=== PATIENT | male | born 1945 | race Caucasian/White ===

== ENCOUNTER 2016-07-28 10:18 | Emergency (ER) | payer SELFPAY ==
[~2016-07-28] VITALS: Ht 182.9 cm; Wt 81.0 kg
[~2016-07-28 10:18] MED LIST: CEPH500C3 PO; CLEO300C2 PO; LORTA5 PO
[2016-07-28 10:41] VITALS: BP 148/86; PULSE 62; RESP 16; TEMP 97.9; O2SAT 99
--- NOTE | 2016-07-28 11:21 | PD ---
HPI . left eye fb x 2 days Chief Complaint: Eye Problems/Injury Time Seen by Provider: 11:21 Travel History International Travel<30 days: No Contact w/Intl Traveler<30days: No Traveled to known affect area: No History of Present Illness HPI 70-year-old male with no significant past medical history here with complaints of left eye foreign body for 2 days. Patient was working on his boat with a external grinder tool and states that he removed his eyeglasses for 1 second and suddenly felt something sharp penetrating his eye. He thoroughly flushed his eye and has been trying to deal with it at home. He is now reporting significant eye pain and purulent drainage from the left eye. He has a difficult time opening his eye and therefore is very difficult to assess his vision in the left eye. He has no complaints of his right eye. He denies any fever or chills. Has no other symptoms. PFSH Past Medical History Diminished Hearing: No Psychiatric: Yes (Schizophrenia) Tetanus Vaccination: < 5 Years Influenza Vaccination: No Past Surgical History Tonsillectomy: Yes Social History Alcohol Use: No Tobacco Use: No Substance Use: No Allergies-Medications (Allergen,Severity, Reaction): Coded Allergies: Thorazine (Verified Allergy, Severe, Confusion, 07/28/16) Reported Meds & Prescriptions Reported Meds & Active Scripts Active No Active Prescriptions or Reported Medications Review of Systems General / Constitutional: No: Fever Eyes: Positive: Pain (left eye pain), No: Visual changes HENT: No: Headaches Cardiovascular: No: Chest Pain or Discomfort Respiratory: No: Shortness of Breath Gastrointestinal: No: Abdominal Pain Genitourinary: No: Dysuria Musculoskeletal: No: Pain Skin: No Rash Neurologic: No: Weakness Psychiatric: No: Depression Endocrine: No: Polydipsia Hematologic/Lymphatic: No: Easy Bruising Physical Exam Narrative GENERAL: AAO x 3, no acute distress, Well-nourished, well-developed patient. SKIN: Warm and dry. No visible rashes or bruising. HEAD: Normocephalic and atraumatic. EYES: No scleral icterus. No injection or drainage. Right eye EOM intact, PERRL , left eye is draining purulent matter, there is a lesion on the cornea, the sclera is inflamed and erythematous ENT: No nasal drainage noted. Mucous membranes pink. Airway patent. NECK: Supple, trachea midline. No JVD. CARDIOVASCULAR: Regular rate and rhythm without murmurs, gallops, or rubs. RESPIRATORY: Breath sounds equal bilaterally. No accessory muscle use. No rhonchi or rales. GASTROINTESTINAL: Abdomen soft, non-tender, nondistended. EXTREMITIES: No cyanosis or edema. BACK: Nontender without obvious deformity. No CVA tenderness. PSYCH: AAO x 3, normal affect. Data Data Last Documented VS Vital Signs Date Time Temp Pulse Resp B/P Pulse Ox O2 Delivery O2 Flow Rate FiO2 07/28/16 10:41 97.9 62 16 148/86 99 Orders Proparacaine 0.5% Opth Soln (Alcaine 0.5 (07/28/16 11:30) Ct Facial Bones W/O Iv Cont (07/28/16 ) MDM Medical Decision Making Medical Screen Exam Complete: Yes Emergency Medical Condition: Yes Medical Record Reviewed: Yes Differential Diagnosis fb in the left eye, corneal abrasion, less likely acute angle glaucoma Narrative Course 70-year-old male with no significant past medical history here with complaints of left eye foreign body for 2 days. Patient was working on his boat with a external grinder tool and states that he removed his eyeglasses for 1 second and suddenly felt something sharp penetrating his eye. He thoroughly flushed his eye and has been trying to deal with it at home. He is now reporting significant eye pain and purulent drainage from the left eye. He has a difficult time opening his eye and therefore is very difficult to assess his vision in the left eye. He has no complaints of his right eye. He denies any fever or chills. Has no other symptoms. Patient seen and examined. Initially I was going to perform staining to look for fb, however, patient's eye is appearing very abnormal. There is a definitive lesion on the cornea and significant amount of purulent matter draining from the eye. The conjunctiva is erythematous and inflamed. There also appears to be some swelling. I decided to contact Dr. Villegas and together we decided to hold on any staining and to check CT for fb and send to ophthalmology. CT scan was negative for any type of foreign body. Call made to Dr. Karimi of ophthalmology. Discussed with Dr. Karimi. She will see him now in her office. Patient given him information and told to go there immediately. Discussed risk of blindness and loss of eye. 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 There was some type of issues with transportation. Patient obviously cannot drive, but his friend Liborio was supposed to pick him up. We were in the process of getting a taxi pass, but then patient's friend Liborio confirmed that he will indeed transport patient to the appointment. 1402: still waiting on Liborio to pick patient up. He is making noises and disrupting other patients. I stressed the importance of f/u and risks of not going such as blindness and loss of his eye. Diagnosis Primary Impression: RETAINED FOREIGN BODY IN LEFT EYE, UNSPECIFIED EYELID Patient Instructions: General Instructions Additional Instructions: Please return to emergency department if your symptoms return or worsen. Follow up with your primary care provider. Please go immediately to the following address to see Dr. Katherine Karimi, senior director of global [employer] [address] [facility] [phone] SHE WILL SEE YOU NOW IN HER OFFICE. Med/Other Pt SpecificInfo: No Change to Meds Scripts No Active Prescriptions or Reported Meds Disposition: 01 DISCHARGE HOME Condition: Stable Emani Denson Jul 28, 2016 11:21
[2016-07-28] MEDS ORDERED: PROPARACAINE HCL 0.5% OPHT SOLN 15 ML BTL EACH EYE ONE (11:30)
--- NOTE | 2016-07-28 11:37 | PD ---
Physical Exam Date Seen by Provider: Jul 28, 2016 Narrative Left eye problem Data Data Last Documented VS Vital Signs Date Time Temp Pulse Resp B/P Pulse Ox O2 Delivery O2 Flow Rate FiO2 07/28/16 10:41 97.9 62 16 148/86 99 Orders Proparacaine 0.5% Opth Soln (Alcaine 0.5 (07/28/16 11:30) Ct Facial Bones W/O Iv Cont (07/28/16 ) MDM Supervised Visit with [facility]: Yes Narrative Course I was asked to see this patient by the nurse practitioner. He was grinding his boat a couple of days ago when he got something into his left eye. I, Dr. Villegas, have reviewed the advance practice practitioner's documentation and am in agreement, met with the patient face to face, made the diagnosis, and the medical decision making was done by me. *My assessment and Findings: His left eye is swollen shut. There is purulent drainage. There is a visible abnormality of the left cornea which appears to be inside of the cornea. That is, it does not appear to be on the surface. It looks like a small accumulation of pus. I have asked the inpatient order a CT to look for and intraorbital foreign body. She was then consult ophthalmology for further direction. Scripts No Active Prescriptions or Reported Meds Kirstin Villegas MD Jul 28, 2016 11:37
--- NOTE | 2016-07-28 12:46 | RADHPO ---
EXAM DATE/TIME: 07/28/2016 11:50 [facility] COMPARISON: No previous studies available for comparison. INDICATIONS : Evaluate for foreign body in left eye from grinding metal two days ago. Pain radiaitng from left faci al area down to toes per patient. RADIATION DOSE: 30.19 CTDIvol (mGy) MEDICAL HISTORY : None SURGICAL HISTORY : Tonsillectomy. ENCOUNTER: Initial ACUITY: 2 days PAIN SCORE: 5/10 LOCATION: Left facial orbit TECHNIQUE: Volumetric scanning of the facial bones was performed. Using automated exposure control and adjustme nt of the mA and/or kV according to patient size, radiation dose was kept as low as reasonably achiev able to obtain optimal diagnostic quality images. FINDINGS: ORBITS: The orbital and infraorbital osseous structures are intact. The retroconal structures have a normal configuration. No radiopaque foreign bodies are seen. There appears to be some mild soft tissue swel ling in the left periorbital. NASAL BONE: The nasal bone and maxillary spine are intact ZYGOMATIC ARCHES: Symmetric without evidence of fracture. SINUSES: The maxillary, ethmoid and frontal sinuses are intact. No air-fluid levels seen. NASAL CAVITY: The nasal septum is intact and midline. The lacrimal ducts are intact. SOFT TISSUES: No radiopaque foreign bodies seen. No soft-tissue swelling is seen. INTRACRANIAL: No intracranial air seen. CRIBIFORM PLATE: Grossly intact. CONCLUSION: No foreign body seen. Pop Hernadez MD on July 28, 2016 at 12:37 Board Certified Radiologist. This report was verified electronically.
[2016-07-28] MEDS ORDERED: ACET1CAP18 PO (15:56)
[2016-08-01] MEDS ORDERED: DOXY1CAP74 PO (09:28)
== END 2016-07-28 14:30 | disposition home or self-care (01) ==
LOC: PHEFT 10:18
DX: H57.12 Ocular pain, left eye (principal); H16.8 Other keratitis
CPT/HCPCS: 70486; 99283

== ENCOUNTER 2016-08-01 10:31 | Inpatient (IN) | payer MEDICARE ==
[~2016-08-01 10:31] MED LIST changes: +ACET1CAP18 PO; -CEPH500C3 PO; -CLEO300C2 PO; +DOXY1CAP74 PO; -LORTA5 PO
[2016-08-01 10:36] VITALS: BP 143/74; PULSE 68; RESP 20; TEMP 97.4; O2SAT 100
[2016-08-01 10:55] VITALS: BP 166/87; PULSE 67; RESP 18; O2SAT 98
[2016-08-01] MEDS ORDERED: SODIUM CHLORIDE 0.9% FLUSH 5 ML FLUSH IVF PRN (11:00)
--- NOTE | 2016-08-01 11:07 | PD ---
HPI Chief Complaint: Eye Problems/Injury Time Seen by Provider: 10:44 Travel History International Travel<30 days: No Contact w/Intl Traveler<30days: No History of Present Illness HPI 70-year-old male presents emergency department for evaluation of left eye infection. According to records patient presented initially on the 13 of this month for a possible retained foreign body. 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 He was referred to tool crib clerk and saw ophthalmology that day he was placed on high-dose ophthalmologic antibiotic drops. Despite that a follow-up today his eye was worse and he was sent here by Dr. Katherine Karimi for admission. [facility] Past Medical History Diminished Hearing: No Psychiatric: Yes (Schizophrenia) ?: Not Past Surgical History Tonsillectomy: Yes Social History Alcohol Use: No Tobacco Use: No Substance Use: No Allergies-Medications (Allergen,Severity, Reaction): Coded Allergies: Thorazine (Verified Allergy, Severe, Confusion, 08/01/16) Reported Meds & Prescriptions Reported Meds & Active Scripts Active No Active Prescriptions or Reported Medications Review of Systems Except as stated in HPI: all other systems reviewed are Neg Physical Exam Narrative GENERAL: WD/WN in nad SKIN: Warm and dry. HEAD: Atraumatic. Normocephalic. EYES: The right eye pupil is normal and reactive to light. Left eye has hypopyon covering atleast have of the anterior chamber. Fluroscein staining shows significant corneal ulcer involving central vision. Left eye pressure is 9 by tonopen. There is significant scleral injection and chemosis. No obvious drainage. ENT: No nasal bleeding or discharge. Mucous membranes pink and moist. NECK: Trachea midline. No JVD. CARDIOVASCULAR: Regular rate and rhythm. RESPIRATORY: No accessory muscle use. Clear to auscultation. Breath sounds equal bilaterally. GASTROINTESTINAL: Abdomen soft, non-tender, nondistended. Hepatic and splenic margins not palpable. MUSCULOSKELETAL: Extremities without clubbing, cyanosis, or edema. No obvious deformities. NEUROLOGICAL: Awake and alert. No obvious cranial nerve deficits. Motor grossly within normal limits. Five out of 5 muscle strength in the arms and legs. Normal speech. PSYCHIATRIC: Appropriate mood and affect; insight and judgment normal. Data Data Last Documented VS Vital Signs Date Time Temp Pulse Resp B/P Pulse Ox O2 Delivery O2 Flow Rate FiO2 08/01/16 16:20 71 18 168/79 97 Room Air 08/01/16 10:36 97.4 Orders Basic Metabolic Panel (Bmp) (08/01/16 10:49) Complete Blood Count With Diff (08/01/16 10:49) Ecg Monitoring (08/01/16 10:49) Iv Access Insert/Monitor (08/01/16 10:49) Oximetry (08/01/16 10:49) Oxygen Administration (08/01/16 10:49) Sodium Chloride 0.9% Flush (Ns Flush) (08/01/16 11:00) Consult Ophthalmology (08/01/16 ) (Hub Use Only)Inp Phy Cons/Ref (08/01/16 ) Eye Culture (08/01/16 UNK) Fluorescein Strip (Biqbc-T-Zlzowa A.T.) (08/01/16 12:15) Proparacaine 0.5% Opth Soln (Alcaine 0.5 (08/01/16 12:15) Non-Formulary Drug (08/01/16 14:00) Non-Formulary Drug (08/01/16 15:00) Doxycycline (Vibramycin) (08/01/16 15:00) Ciprofloxacin (Cipro) (08/01/16 15:00) Aspirin (Aspirin) (08/01/16 15:45) Admit Order (Ed Use Only) (08/01/16 ) Labs Laboratory Tests Test 08/01/16 11:10 White Blood Count 9.5 TH/MM3 Red Blood Count 5.07 MIL/MM3 Hemoglobin 13.9 GM/DL Hematocrit 42.7 % Mean Corpuscular Volume 84.2 FL Mean Corpuscular Hemoglobin 27.4 PG Mean Corpuscular Hemoglobin 32.5 % Concent Red Cell Distribution Width 17.3 % Platelet Count 290 TH/MM3 Mean Platelet Volume 7.7 FL Neutrophils (%) (Auto) 72.2 % Lymphocytes (%) (Auto) 16.3 % Monocytes (%) (Auto) 8.7 % Eosinophils (%) (Auto) 2.6 % Basophils (%) (Auto) 0.2 % Neutrophils # (Auto) 6.9 TH/MM3 Lymphocytes # (Auto) 1.5 TH/MM3 Monocytes # (Auto) 0.8 TH/MM3 Eosinophils # (Auto) 0.2 TH/MM3 Basophils # (Auto) 0.0 TH/MM3 CBC Comment DIFF FINAL Differential Comment Sodium Level 137 MEQ/L Potassium Level 3.7 MEQ/L Chloride Level 105 MEQ/L Carbon Dioxide Level 28.3 MEQ/L Anion Gap 4 MEQ/L Blood Urea Nitrogen 16 MG/DL Creatinine 0.96 MG/DL Estimat Glomerular Filtration 78 ML/MIN Rate Random Glucose 97 MG/DL Calcium Level 8.6 MG/DL MDM Medical Decision Making Medical Screen Exam Complete: Yes Emergency Medical Condition: Yes Differential Diagnosis Hypopyon, corneal ulcer, FB, endophthalmitis. Narrative Course Patient was roomed emergency department, careful exam reveals quite advanced corneal ulcer with a hypopyon. Patient vision severely decreased, there is significant injection and some mild chemosis of the sclera. William-Pen reveals a pressure of 9 and the patient is reluctant to cooperate with the exam and I don' t know the validity of this measurement. The right eye is completely normal. Have been discussing with the patient's tool crib clerk Dr. Katherine Karimi who initially recommended admission to the hospital for possible Antamoeba treatment. She has recommended that the patient have PHMB and/or chlorhexidine drops. She is placed orders into our pharmacy and unfortunately we do not have these drugs on formulary. After talking with Dr. Karimi again she recommends the patient be transferred to an Eye center such as [facility] for evaluation by ophthalmology there. I have been speaking with Dr. Arriaga who is the tool crib clerk on-call for [facility] who states that the patient may benefit from vancomycin drops. He states they can see if ER-ER transfer but likely not admitted. This information has been relayed to Dr. Karimi and at this point I have recommended the 2 physicians speak directly to each other. It is now 1430 and I am waiting for that discussion to take place. This information was discussed with the patient who would like to not go to [place]. He also has had me speak to his friend (who also helps take care of him) who states that it seems silly to transfer him to [place] for eye drops. I discussed with both of them that whatever Dr. Karimi ultimately recommends i would recommend following to save as much of his vision as we can as i believe this is a vision threatening lesion. [address] Karimi who after she discussed with Dr. Arriaga would like admission to [facility] at this time. Will be given antibiotics per her recommendations (below) and the patient was discussed with Dr. Rojas for admission who accepted. At this time transfer we put on hold and may be reassessed in the future for transfer. Dr. Karimi Recommends: PHMb (polyhexamethyl biguanide) 0.02% 1 drop q1hr or Chlorhexidine 0.02% 1 drop q1hr Propamidine isethionate 0.1%q1hr Fortified tobramycin q1hr atropine 1% TID Doxycycline 100mg BID Cipro 500mb BID These recommendations were passed on to Dr. Rojas. Diagnosis Primary Impression: Corneal ulcer with hypopyon, left eye Admitting Information Admitting Physician Requests: Admit Scripts No Active Prescriptions or Reported Meds Condition: Stable Jh Solomon MD Aug 01, 2016 11:07
[2016-08-01 11:09] VITALS: RESP 20; O2SAT 100
[2016-08-01 11:22] LABS: AUTOMATED NEUTROPHIL # 6.9 TH/MM3 (1.8-7.7); BASOPHIL % 0.2 % (0.0-2.0); EOSINOPHIL # 0.2 TH/MM3 (0-0.4); EOSINOPHIL % 2.6 % (0.0-4.0); HEMATOCRIT 42.7 % (39.0-51.0); HEMO FLAGS DIFF FINAL; LYMPH % 16.3 % (9.0-44.0); LYMPHOCYTE # 1.5 TH/MM3 (1.0-4.8); MEAN CELL VOLUME 84.2 FL (80.0-100.0); MEAN CORPUSCULAR HEMOGLOBIN 27.4 PG (27.0-34.0); MEAN CORPUSCULAR HGB CONC 32.5 % (32.0-36.0); MONO % 8.7 % (0.0-8.0); NEUT % 72.2 % (16.0-70.0); PLATELET COUNT 290 TH/MM3 (150-450); RED BLOOD COUNT 5.07 MIL/MM3 (4.50-5.90); RED CELL DISTRIBUTION WIDTH 17.3 % (11.6-17.2); WHITE BLOOD COUNT 9.5 TH/MM3 (4.0-11.0)
[2016-08-01 11:45] LABS: BICARBONATE 28.3 MEQ/L (21.0-32.0); POTASSIUM 3.7 MEQ/L (3.5-5.1)
[2016-08-01] MEDS ORDERED: FLUORESCEIN SOD 1 MG STRIP EACH EYE ONE (12:15)
[2016-08-01] MEDS ORDERED: PROPARACAINE HCL 0.5% OPHT SOLN 15 ML BTL EACH EYE ONE (12:15)
[2016-08-01] MEDS: CEFAZOLIN LEFT EYE SCH ×8 (14:00→23:45)
[2016-08-01] MEDS: TOBRAMYCIN LEFT EYE SCH ×7 (14:22→22:42)
[2016-08-01] MEDS ORDERED: DOXYCYCLINE HYCLATE 100 MG CAP PO ONE (15:00)
[2016-08-01] MEDS ORDERED: CIPROFLOXACIN 500 MG TAB PO ONE (15:00)
[2016-08-01] MEDS ORDERED: ASPIRIN 325 MG TAB PO ONE (15:45)
[2016-08-01 16:20] VITALS: BP 168/79; PULSE 71; RESP 18; O2SAT 97
--- NOTE | 2016-08-01 19:26 | HHI.HP ---
[facility] Primary Care Physician Unknown Admission Diagnosis Corneal Ulcer Diagnoses: Chief Complaint: Acute Left eye blindness and pain. Travel History International Travel<30 Days: No Contact w/Intl Traveler <30 Da: No History of Present Illness 70-year-old male who denies any significant medical history sent to the hospital from the ophthalmology clinic of Dr. Karimi for worsening eye infection. In the background the patient reports he was cutting tiles to remodel his kitchen on 07/24/16 and felt some dust got into his left eye. He tried to wash it off with no improvement. He presented to the ophthalmology clinic on 07/28/16 and was diagnosed with a corneal ulcer. He was prescribed fortified antibiotics drops, atropine drops and doxycycline. He reports the symptoms persisted and continued to get worse. Today he presented again to the ophthalmology clinic. He reports loss of vision. His exam was worse and therefore referred to the emergency room for admission. It was recommended the patient be transferred to [facility] for further care as the pharmacy did not have some of the medications recommended for treatment. However this could not be arranged in the ED. The patient is being admitted with plans to transfer to a tertiary care center as soon as arrangements are made. Review of Systems Constitutional: DENIES: Fever, Chills Eyes: COMPLAINS OF: Eye inflammation, Eye pain, Vision loss Neurologic: COMPLAINS OF: Headache Except as stated in HPI: all other systems reviewed are Neg Past Family Social History Past Medical History Patient denies any medical history Past Surgical History Tonsillectomy Reported Medications Antibiotic eye drops as noted in the history of present illness. Allergies: Coded Allergies: Thorazine (Verified Allergy, Severe, Confusion, 08/01/16) Family History Reviewed and noncontributory. Social History Patient is a lifelong smoker one pack per day. He denies alcohol or illicit drugs. Physical Exam Vital Signs Vital Signs Date Time Temp Pulse Resp B/P Pulse Ox O2 Delivery O2 Flow Rate FiO2 08/01/16 16:20 71 18 168/79 97 Room Air 08/01/16 11:09 20 100 Room Air 08/01/16 11:09 100 Room Air 08/01/16 11:09 66 20 08/01/16 10:55 67 18 166/87 98 08/01/16 10:36 97.4 68 20 143/74 100 Room Air Physical Exam GENERAL: Patient appears older than stated age in no apparent distress. SKIN: No ecchymoses or lesions. Cool and dry. HEAD: Atraumatic. Normocephalic. No temporal or scalp tenderness. EYES: Left eye tender to palpation, the anatomy is distorted with marked conjunctival swelling and erythema. Corneal ulceration. Could not assess pupils. Right pupil is equal, round, and reactive. He sharply movement on the right is intact. Extraocular movement on the left limited due to pain. ENT: Nose without drainage. Throat without erythema, tonsillar hypertrophy or exudate. Uvula midline. Airway patent. NECK: Trachea midline. No JVD or lymphadenopathy. Supple, nontender, no meningeal signs. CARDIOVASCULAR: Regular rate and rhythm without murmurs, gallops, or rubs. RESPIRATORY: Clear to auscultation. Breath sounds equal bilaterally. No wheezes , rales, or rhonchi. GASTROINTESTINAL: Abdomen soft, non-tender, nondistended. No hepato-splenomegaly , or palpable masses. No guarding. MUSCULOSKELETAL: Extremities without clubbing, cyanosis, or edema. NEUROLOGICAL: Awake and alert. Normal speech. Laboratory Laboratory Tests Test 08/01/16 11:10 White Blood Count 9.5 Red Blood Count 5.07 Hemoglobin 13.9 Hematocrit 42.7 Mean Corpuscular Volume 84.2 Mean Corpuscular Hemoglobin 27.4 Mean Corpuscular Hemoglobin 32.5 Concent Red Cell Distribution Width 17.3 Platelet Count 290 Mean Platelet Volume 7.7 Neutrophils (%) (Auto) 72.2 Lymphocytes (%) (Auto) 16.3 Monocytes (%) (Auto) 8.7 Eosinophils (%) (Auto) 2.6 Basophils (%) (Auto) 0.2 Neutrophils # (Auto) 6.9 Lymphocytes # (Auto) 1.5 Monocytes # (Auto) 0.8 Eosinophils # (Auto) 0.2 Basophils # (Auto) 0.0 CBC Comment DIFF FINAL Differential Comment Sodium Level 137 Potassium Level 3.7 Chloride Level 105 Carbon Dioxide Level 28.3 Anion Gap 4 Blood Urea Nitrogen 16 Creatinine 0.96 Estimat Glomerular Filtration 78 Rate Random Glucose 97 Calcium Level 8.6 Date/Time Procedure Status Source Growth 08/01/16 00:00 Gram Stain - Final Resulted Eye Left 08/01/16 00:00 Wound Culture Resulted Eye Left Pending Result Diagram: 08/01/16 1110 08/01/16 1110 Assessment and Plan Problem List: (1) Corneal ulcer with hypopyon, left eye ICD Code: H16.032 Status: Acute Assessment and Plan 70-year-old male with severe and worsening corneal ulcer. The patient reported the initial injury was due to tile dust that got into his eye. He failed outpatient treatment and at risk for worsening of his condition. I spoke to the patient's intake clinician, Dr. Karimi. The hospital does not have all the recommended medications for his condition. She recommends transfer to [facility] as soon as this can be arranged. I have consulted case management to assist with emergent transfer to a tertiary care center. - We will continue antibiotics drop per intake clinician recommendations. - Pain control. - Continue Doxycycline and ciprofloxacin Elevated blood pressure: Patient denies any history of hypertension. Pain likely contributing. - Continue to monitor blood pressure. Vasotec as needed. Physician Certification 2 Midnight Certification Type: Admission for Inpatient Services Order for Inpatient Services The services are ordered in accordance with Medicare regulations or non- Medicare payer requirements, as applicable. In the case of services not specified as inpatient-only, they are appropriately provided as inpatient services in accordance with the 2-midnight benchmark. Estimated LOS (days): 3 days is the estimated time the patient will need to remain in the hospital, assuming treatment plan goals are met and no additional complications. Post-Hospital Plan: Home Evan Rojas MD Aug 01, 2016 19:26
[2016-08-01] MEDS ORDERED: ENALAPRILAT 1.25 MG/ML VIAL IV PRN (19:30)
[2016-08-01] MEDS ORDERED: ACETAMINOPHEN 325 MG TAB PO PRN (19:45)
[2016-08-01] MEDS ORDERED: ONDANSETRON HCL 4 MG/2 ML VIAL IVP PRN (19:45)
[2016-08-01] MEDS ORDERED: BISACODYL 10 MG SUPP PR PRN (19:45)
[2016-08-01] MEDS ORDERED: SODIUM CHLORIDE 0.9% FLUSH 5 ML FLUSH FLUSH PRN (19:45)
[2016-08-01] MEDS ORDERED: ACETAMINOPHEN/HYDROcodone 325 MG/5 MG TAB PO PRN (19:45)
[2016-08-01 22:22] VITALS: BP 162/79; PULSE 75; RESP 22; O2SAT 99
[2016-08-01] MEDS: SODIUM CHLOR 0.9% 1000 ML INJ 1,000 ML IV SCH (22:30)
[2016-08-01] MEDS: DOXYCYCLINE HYCLATE 100 MG CAP PO SCH (22:30)
[2016-08-01] MEDS: CIPROFLOXACIN 500 MG TAB PO SCH (22:31)
[2016-08-01] MEDS: SODIUM CHLORIDE 0.9% FLUSH 5 ML FLUSH FLUSH SCH (22:31)
[2016-08-02] VITALS: BP 161/74; PULSE 75; RESP 17; TEMP 98.2; O2SAT 99
[2016-08-02] MEDS: CEFAZOLIN LEFT EYE SCH ×18 (01:00→17:00)
[2016-08-02] MEDS: TOBRAMYCIN LEFT EYE SCH ×18 (01:00→17:00)
--- NOTE | 2016-08-02 01:01 | HHI.PR ---
Addendum To [facility] Progress Not Remarks 00:54 called by Edgar in Transfer Center at [facility] regarding status of Transfer. States Ophthalmology and Hospitalist at [facility] have accepted pt for transfer, however they are awaiting final confirmation from us that we wish to proceed w/ transfer. Unable to contact Ophthalmology at this time as Call Center states we do not have weekend coverage. I have reviewed pt's chart myself, in light of the severity of infection and our lack of appropriate medications to treat such infection here at [place], I have relayed to Edgar that yes, we will need to proceed w/ transfer. All arrangements have been made at this time, currently pending Bed. Will transfer when bed available. Sravani Ponce MD Aug 02, 2016 01:01
[2016-08-02 04:00] VITALS: BP 153/71; PULSE 78; RESP 18; TEMP 98.6; O2SAT 95
[2016-08-02] MEDS: MORPHINE SULFATE 4 MG/ML INJ IV PRN ×3 (04:14→15:04)
[2016-08-02] MEDS: SODIUM CHLOR 0.9% 1000 ML INJ 1,000 ML IV SCH ×2 (05:33→15:33)
[2016-08-02 06:22] LABS: AUTOMATED NEUTROPHIL # 4.3 TH/MM3 (1.8-7.7); BASOPHIL # 0.1 TH/MM3 (0-0.2); BASOPHIL % 1.3 % (0.0-2.0); EOSINOPHIL # 0.3 TH/MM3 (0-0.4); EOSINOPHIL % 4.2 % (0.0-4.0); HEMATOCRIT 39.4 % (39.0-51.0); HEMO FLAGS DIFF FINAL; LYMPH % 22.3 % (9.0-44.0); LYMPHOCYTE # 1.6 TH/MM3 (1.0-4.8); MEAN CORPUSCULAR HEMOGLOBIN 27.9 PG (27.0-34.0); MEAN CORPUSCULAR HGB CONC 33.2 % (32.0-36.0); MONO % 12.9 % (0.0-8.0); NEUT % 59.3 % (16.0-70.0); PLATELET COUNT 296 TH/MM3 (150-450); RED BLOOD COUNT 4.69 MIL/MM3 (4.50-5.90); RED CELL DISTRIBUTION WIDTH 17.2 % (11.6-17.2); WHITE BLOOD COUNT 7.3 TH/MM3 (4.0-11.0)
[2016-08-02 06:31] LABS: ANION GAP 6 MEQ/L (5-15); AST (GOT) 36 U/L (15-37); BICARBONATE 26.7 MEQ/L (21.0-32.0); BLOOD UREA NITROGEN 18 MG/DL (7-18); CHLORIDE 105 MEQ/L (98-107); GLOMERULAR FILTRATION RATE 96 ML/MIN (>89); POTASSIUM 4.1 MEQ/L (3.5-5.1); SODIUM (NA) 138 MEQ/L (136-145)
[2016-08-02 06:34] LABS: ALKALINE PHOSPHATASE 98 U/L (45-117); ALT (GPT) 66 U/L (12-78); TOTAL BILIRUBIN ADULT 0.5 MG/DL (0.2-1.0)
[2016-08-02 08:00] VITALS: BP 170/78; PULSE 69; RESP 16; TEMP 97.8; O2SAT 97
[2016-08-02] MEDS: SODIUM CHLORIDE 0.9% FLUSH 5 ML FLUSH FLUSH SCH (09:00)
[2016-08-02] MEDS: CIPROFLOXACIN 500 MG TAB PO SCH (09:02)
[2016-08-02] MEDS ORDERED: DOXY100C PO (09:42)
[2016-08-02] MEDS ORDERED: Non-Formulary Drug LEFT EYE (09:42)
[2016-08-02] MEDS ORDERED: CIPR-9 PO (09:42)
--- NOTE | 2016-08-02 09:52 | HHI.DS ---
Discharge Summary Admission Date Aug 01, 2016 at 16:47 Discharge Date: Aug 02, 2016 Admitting Diagnosis Corneal Ulcer (1) Corneal ulcer with hypopyon, left eye ICD Code: H16.032 Procedures None Brief History - From Admission 70-year-old male who denies any significant medical history sent to the hospital from the ophthalmology clinic of Dr. Karimi for worsening eye infection. In the background the patient reports he was cutting tiles to remodel his kitchen on 07/24/16 and felt some dust got into his left eye. He tried to wash it off with no improvement. He presented to the ophthalmology clinic on 07/28/16 and was diagnosed with a corneal ulcer. He was prescribed fortified antibiotics drops, atropine drops and doxycycline. He reports the symptoms persisted and continued to get worse. He presented again to the ophthalmology clinic on 08/01/16. He reports loss of vision. His exam was worse and therefore referred to the emergency room for admission. It was recommended the patient be transferred to [facility] for further care as the pharmacy did not have some of the medications recommended for treatment. However this could not be arranged in the ED. The patient was admitted with plans to transfer to a tertiary care center as soon as arrangements are made. CBC/BMP: 08/02/16 0549 08/02/16 0549 Significant Findings Laboratory Tests Test 08/01/16 08/02/16 11:10 05:49 Red Cell Distribution Width 17.3 % (11.6-17.2) Neutrophils (%) (Auto) 72.2 % (16.0-70.0) Monocytes (%) (Auto) 8.7 % (0.0-8.0) 12.9 % (0.0-8.0) Anion Gap 4 MEQ/L (5-15) Estimat Glomerular Filtration 78 ML/MIN (>89) Rate Eosinophils (%) (Auto) 4.2 % (0.0-4.0) Random Glucose 70 MG/DL (74-106) Calcium Level 8.0 MG/DL (8.5-10.1) Albumin 2.8 GM/DL (3.4-5.0) PE at Discharge GENERAL: Patient appears older than stated age in no apparent distress. SKIN: No ecchymoses or lesions. Cool and dry. HEAD: Atraumatic. Normocephalic. No temporal or scalp tenderness. EYES: Left eye tender to palpation, the anatomy is distorted with marked conjunctival swelling and erythema. Corneal ulceration. Could not assess pupils. Right pupil is equal, round, and reactive. Extraocular movement on the right is intact. Extraocular movement on the left limited due to pain. ENT: Nose without drainage. Throat without erythema, tonsillar hypertrophy or exudate. Uvula midline. Airway patent. NECK: Trachea midline. No JVD or lymphadenopathy. Supple, nontender, no meningeal signs. CARDIOVASCULAR: Regular rate and rhythm without murmurs, gallops, or rubs. RESPIRATORY: Clear to auscultation. Breath sounds equal bilaterally. No wheezes , rales, or rhonchi. GASTROINTESTINAL: Abdomen soft, non-tender, nondistended. No hepato-splenomegaly , or palpable masses. No guarding. MUSCULOSKELETAL: Extremities without clubbing, cyanosis, or edema. NEUROLOGICAL: Awake and alert. Normal speech. Moves all extremities. Transfer Summary 70-year-old male with severe and worsening corneal ulcer. The patient reported the initial injury was due to tile dust that got into his eye. He failed outpatient treatment and is condition is worsening. I spoke to the patient's metal cutter, Dr. Karimi at length. The hospital does not have all the recommended medications for his condition. She recommends transfer to [facility] as soon as this can be arranged. I have consulted case management to assist with emergent transfer to a tertiary care center. Dr. Karimi discussed the case with [facility] Ophthalmology and Hospitalist service and the patient was accepted for emergent transfer. Meanwhile we continued fortified cefazolin (50 mg/ml) 1 drop q1h, fortified tobramycin (15 mg/ml) 1 drop q1h alternating with cefazolin. Doxy 100 BID and Cipro 500 BID. The patient is to be transferred as soon as a bed becomes available. Elevated blood pressure: Patient denies any history of hypertension. Pain likely contributing. - Continue to monitor blood pressure. He was treated with Vasotec as needed. Pt update on day of discharge The patient continues to report pain and loss of vision on the left eye. He has been accepted at [facility] by the Hospitalist and Ophthalmology services. Hospital Course See above Pt Condition on Discharge: Fair Discharge Disposition: Disch to Another Hospital Discharge Time: > 30 minutes Discharge Instructions DIET: Follow Instructions for: Heart Healthy Diet Activities you can perform: Regular-No Restrictions New Medications: Ciprofloxacin (Cipro) 500 Mg Tab 500 MG PO Q12HR #1 TAB Doxycycline Hyclate (Doxycycline Hyclate) 100 Mg Cap 100 MG PO BID #1 CAP ([Non-Formulary Drug]) 1 EA EA 1 EA LEFT EYE Q1H #1 EA ([Non-Formulary Drug]) 1 EA EA 1 EA LEFT EYE Q1H #1 EA Evan Rojas MD Aug 02, 2016 09:52
[2016-08-02] MEDS: DOXYCYCLINE HYCLATE 100 MG CAP PO SCH (10:35)
[2016-08-02 12:00] VITALS: BP 150/78; PULSE 70; RESP 16; TEMP 98.3; O2SAT 98
[2016-08-02 15:09] VITALS: RESP 18
== END 2016-08-02 17:04 | disposition short-term general hospital (02) | DRG 122 ==
LOC: NEPA 10:31 → NEDA 16:47 → HCPC 22:03
PROVIDERS: ADMIT Family Medicine; ATTEND Family Medicine
DX: H16.032 Corneal ulcer with hypopyon, left eye (principal); F20.9 Schizophrenia, unspecified; R03.0 Elevated blood-pressure reading, without diagnosis of hypertension; H54.42 Blindness, left eye, normal vision right eye; F17.210 Nicotine dependence, cigarettes, uncomplicated
CPT/HCPCS: 80048; 80053; 85025; 87070; 87102; 87205; 87206; 99284; J2270; J7030

== ENCOUNTER 2017-01-27 16:17 | Emergency (ER) | payer SELFPAY ==
[~2017-01-27 16:17] MED LIST changes: -ACET1CAP18 PO; +CIPR-9 PO; +DOXY100C PO; -DOXY1CAP74 PO; +Non-Formulary Drug LEFT EYE
[2017-01-27 16:24] VITALS: BP 122/74; PULSE 94; RESP 20; TEMP 99.2
[2017-01-27] MEDS ORDERED: IBUP-1129 PO (16:51)
[2017-01-27] MEDS ORDERED: ASPI81CH7 CHEW (16:51)
--- NOTE | 2017-01-27 16:56 | PD ---
HPI Chief Complaint: Laceration/Skin Injury Time Seen by Provider: 16:50 Travel History International Travel<30 days: No Contact w/Intl Traveler<30days: No Traveled to known affect area: No History of Present Illness HPI 71-year-old male presents to the emergency room for evaluation of a bleeding laceration to his right medial ankle that occurred just prior to arrival. Patient accidentally struck his ankle against the spike of his bike pedal. He began bleeding significantly so he applied a tourniquet and had his friend call 911. States he believes his last tetanus was 4 months ago. Patient denies significant pain or loss of range of motion. PFSH Past Medical History Cancer: No Cardiovascular Problems: No Diminished Hearing: No Genitourinary: No Musculoskeletal: No Neurologic: No Psychiatric: Yes (Schizophrenia) Reproductive: No Respiratory: No Immunizations Current: Yes Tetanus Vaccination: < 5 Years Influenza Vaccination: Yes Past Surgical History Tonsillectomy: Yes (adnoids) Social History Alcohol Use: No Tobacco Use: Yes (1 pk) Substance Use: No Allergies-Medications (Allergen,Severity, Reaction): Coded Allergies: chlorpromazine (Unverified Allergy, Severe, Confusion, 01/27/17) Reported Meds & Prescriptions Reported Meds & Active Scripts Active Reported Motrin Ib (Ibuprofen) 200 Mg Tablet 400 Mg PO DAILY Aspirin Children's (Aspirin) 81 Mg Chew 81 Mg CHEW DAILY Review of Systems Except as stated in HPI: all other systems reviewed are Neg Physical Exam Narrative GENERAL: Well-nourished, well-developed male in no acute distress. Afebrile. Ambulatory. SKIN: Focused skin assessment warm/dry. There is a 1.5 cm superficial laceration to the right medial ankle. It is bleeding moderately. HEAD: Normocephalic. EYES: No scleral icterus. No injection or drainage. NECK: Supple, trachea midline. No JVD or lymphadenopathy. CARDIOVASCULAR: Regular rate and rhythm without murmurs, gallops, or rubs. RESPIRATORY: Breath sounds equal bilaterally. No accessory muscle use. MUSCULOSKELETAL: No cyanosis, or edema. 2+ dorsalis pedis pulse. Less than 2 second capillary refill distally. Data Data Last Documented VS Vital Signs Date Time Temp Pulse Resp B/P (MAP) Pulse Ox O2 Delivery O2 Flow Rate FiO2 01/27/17 16:24 99.2 94 20 122/74 (90) Orders Orders Lidocaine 1% Inj (50 Ml) (Xylocaine 1% I (01/27/17 17:00) [facility] Medical Decision Making Medical Screen Exam Complete: Yes Emergency Medical Condition: Yes Medical Record Reviewed: Yes Differential Diagnosis Laceration, abrasion, bleeding varicose vein Narrative Course 71-year-old male presents to the emergency room for evaluation of a laceration to his right ankle that occurred just prior to arrival. Patient cut himself on a bike pedal. He believes his last tetanus was 4 months ago. Physical exam reveals a 1.5 cm well approximated, superficial laceration to the right medial ankle. There is a superficial bleeding varicose vein. Laceration was thoroughly cleansed and then repaired, see procedure note for details. Pressure dressing was applied. Patient discharged with wound care instructions and told to follow-up with a primary care physician or return for worsening symptoms. He understands and agrees to plan. Procedures Procedure Narrative LACERATION LOCATION: Right medial ankle LENGTH: 1.5 cm NUMBER OF STITCHES/AIXA: 5 interrupted REPAIR: The area of the laceration was prepped with Betadine and sterilely draped. The laceration was infiltrated with 1% lidocaine. The wound was copiously irrigated and explored without evidence of foreign body, tendon injury or neurovascular injury. There was a bleeding superficial vein. The wound was closed using 5-0 Prolene. This was a single layer repair. A pressure dressing was applied. The patient was advised to keep the dressing clean and dry. Patient tolerated the procedure well. Diagnosis Primary Impression: Laceration of ankle Qualified Codes: S91.011A - Laceration without foreign body, right ankle, initial encounter Referrals: Primary Care Physician Additional Instructions: Keep wound clean and dry. Apply triple antibiotic ointment daily. Sutures out in 10 days. Follow-up with a primary care physician. Return to the emergency room for worsening symptoms. Med/Other Pt SpecificInfo: Prescription(s) given Disposition: 01 DISCHARGE HOME Condition: Stable Eula Strange Jan 27, 2017 16:56
[2017-01-27] MEDS ORDERED: LIDOCAINE HCL 1% 50 ML VIAL INFIL ONE (17:00)
== END 2017-01-27 17:53 | disposition home or self-care (01) ==
LOC: PHED 16:17
DX: S91.011A Laceration without foreign body, right ankle, initial encounter (principal); W22.8XXA Striking against or struck by other objects, initial encounter; F17.210 Nicotine dependence, cigarettes, uncomplicated
CPT/HCPCS: 12001

== ENCOUNTER 2018-05-25 18:51 | Inpatient (IN) ==
[2018-05-25] MEDS ORDERED: Vancomycin Inj 1,000 MG in Sodium Chlor 0.9% Inj 250 ML IV.SIG ONE (19:28)
--- NOTE | 2018-05-25 19:39 | ED ---
HPI General Chief complaint: Skin/Abscess/Foreign Body Stated complaint: Lft Leg Wound Time Seen by Provider: 05/25/18 19:13 Source: patient Mode of arrival: EMS Limitations: no limitations History of Present Illness HPI narrative: Patient is a 72 year old male, brought in by EMS due to a wound to his left leg. He says he does not know how long it has been there for. He does have pain to the leg. He says he came in because his friends made him. He denies any fever or chills. He says he has not medical problems. He denies any recent trauma. Severity is moderate. Related Data Home Medications Medication Instructions Recorded Confirmed No Known Home Medications 05/25/18 05/25/18 Allergies Allergy/AdvReac Type Severity Reaction Status Date / Time chlorpromazine Allergy Severe Confusion Verified 05/25/18 21:01 Review of Systems ROS: all other systems reviewed are negative Constitutional Denies chills and Denies fever(s) ENT Denies dizziness Cardiovascular Denies chest pain and Denies dyspnea Respiratory Denies cough and Denies dyspnea Gastrointestinal Denies abdominal pain, Denies nausea and Denies vomiting Musculoskeletal Denies back pain Integumentary/Breasts Reports sores and Reports wounds Neurologic Denies focal weakness and Denies numbness PMFSH Social History Social History Substance History: No History of Abuse Second Hand Smoke Exposure: Yes Smoking Status: Current some day smoker Tobacco Type: Cigarettes How Often Do You Have a Drink Containing Alcohol: Never Recent Travel in [facility] within the Last 8 Weeks: No Recent Out of Country Travel within the Last 8 Weeks: No Immunization History Tetanus Immunization: Unsure Exam Narrative Exam Narrative: GENERAL: Awake and alert, in no acute distress. SKIN: Large open wound to the left garner. Wound is approximately 4cm and gaping open. There is surrounding erythema, foul smell. HEAD: Atraumatic. Normocephalic. EYES: Pupils equal and round. No scleral icterus. No injection or drainage. ENT: Mucous membranes pink and moist. NECK: Trachea midline. No JVD. CARDIOVASCULAR: Regular rate and rhythm. No murmur appreciated. RESPIRATORY: No accessory muscle use. Clear to auscultation. Breath sounds equal bilaterally. GASTROINTESTINAL: Abdomen soft, non-tender, nondistended. MUSCULOSKELETAL: No obvious deformities. No clubbing. No cyanosis. Edema of the left leg. Pedal pulse intact. NEUROLOGICAL: Awake and alert. No obvious cranial nerve deficits. Motor grossly within normal limits. Normal speech. PSYCHIATRIC: Appropriate mood and affect; insight and judgment normal. Course Initial Documented Vital Signs Temperature 98.5 F 05/25/18 19:01 Pulse Rate 79 05/25/18 19:01 Respiratory Rate 16 05/25/18 19:01 Blood Pressure 161/81 H 05/25/18 19:01 Pulse Oximetry 96 05/25/18 19:01 Last Documented Vital Signs Temperature 98.5 F 05/25/18 19:01 Pulse Rate 88 05/25/18 20:23 Respiratory Rate 16 05/25/18 20:23 Blood Pressure 138/75 05/25/18 20:23 Pulse Oximetry 100 05/25/18 20:23 Medical Decision Making MDM Narrative Medical decision making narrative: Patient is a 72 year old male who comes in due to a large wound to his left leg. Exam shows a large, ulcerated wound with foul smelling discharge and surrounding erythema. IV established, labs sent. Labs show elevated CRP. XR of the leg shows the deep laceration. Given IVF, Vancomycin. He will be placed in observation for further management. Medical Screen Exam Complete: Yes Emergency Medical Condition: Yes Differential Diagnosis Differential Diagnosis: cellulitis vs abscess vs osteomyelitis Medical Records Medical records reviewed: Yes I reviewed the patient's medical records. Lab Data Lab results reviewed: Yes I reviewed the patient's lab results. Result diagrams: 05/25/18 19:45 05/25/18 19:45 Lab Results 05/25/18 05/25/18 05/25/18 Range/Units 19:45 19:45 19:45 CBC w Diff Auto diff final WBC 8.6 (4.0-11.0) th/mm3 RBC 5.21 (4.50-5.90) mil/mm3 Hgb 12.8 L (13.0-17.0) gm/dL Hct 39.9 (39.0-51.0) % MCV 76.6 L (80.0-100.0) fL MCH 24.6 L (27.0-34.0) pg MCHC 32.1 (32.0-36.0) % RDW 18.9 H (11.6-17.2) % Plt Count 281 (150-450) th/mm3 MPV 7.8 (7.0-11.0) fL Neut % (Auto) 73.4 H (16.0-70.0) % Lymph % (Auto) 11.0 (9.0-44.0) % [place] % (Auto) 11.9 H (0.0-8.0) % Eos % (Auto) 2.7 (0.0-4.0) % Baso % (Auto) 1.0 (0.0-2.0) % Neut # (Auto) 6.4 (1.8-7.7) th/mm3 Lymph # (Auto) 0.9 L (1.0-4.8) th/mm3 [place] # (Auto) 1.0 H (0.0-0.9) th/mm3 Eos # (Auto) 0.2 (0.0-0.4) th/mm3 Baso # (Auto) 0.1 (0.0-0.2) th/mm3 WBC Differential . Differential Comment . ESR 20 (0-20) mm/hr Sodium 136 (136-145) meq/L Potassium 4.5 (3.5-5.1) meq/L Chloride 105 (98-107) meq/L Carbon Dioxide 27.4 (21.0-32.0) meq/L Anion Gap 4 L (5-15) meq/L BUN 14 (7-18) mg/dL Creatinine 0.71 (0.60-1.30) mg/dL Estimated GFR Greater than 89 (>89) mL/min Random Glucose 104 (74-106) mg/dL Calcium 9.0 (8.5-10.1) mg/dL Total Bilirubin 0.6 (0.2-1.0) mg/dL AST 30 (15-37) U/L ALT 36 (12-78) U/L Alkaline Phosphatase 119 H (45-117) U/L C-Reactive Protein 2.39 H (0.00-0.30) mg/dL Total Protein 7.6 (6.4-8.2) g/dL Albumin 3.0 L (3.4-5.0) g/dL Imaging Data Radiologist's impression: Tibia/Fibula X-Ray 05/25/18 19:28 CONCLUSION: Large and deep soft tissue laceration and/or ulceration anterolaterally of the distal leg without an associated perceptible acute bony abnormality. Discharge Plan Discharge Disposition Patient Disposition: ED Admit(ED Internal Use Only) Discharge Condition Condition: Stable Discharge Details Diagnosis: Cellulitis, Infected open wound Physicians Team ED Provider: Elvie Islas Primary Care Provider: UNKNOWN, Rxs /Orders / Referrals /Forms Prescriptions: No Action No Known Home Medications RF: 0 Discharge Interventions Interventions: Vital Signs Last Done: 05/25/18 20:23 Status ED Status: With Doctor
[2018-05-25 19:57] LABS: Baso # (Auto) 0.1 th/mm3 (0.0-0.2); Eos # (Auto) 0.2 th/mm3 (0.0-0.4); Eos % (Auto) 2.7 % (0.0-4.0); Hematocrit 39.9 % (39.0-51.0); Hemoglobin 12.8 gm/dL (13.0-17.0); Lymph # (Auto) 0.9 th/mm3 (1.0-4.8); Mean Corpuscular HGB Conc 32.1 % (32.0-36.0); Mean Corpuscular Hemoglobin 24.6 pg (27.0-34.0); Mean Corpuscular Volume 76.6 fL (80.0-100.0); Mean Platelet Volume 7.8 fL (7.0-11.0); Mono % (Auto) 11.9 % (0.0-8.0); Neut # (Auto) 6.4 th/mm3 (1.8-7.7); Neut % (Auto) 73.4 % (16.0-70.0); Platelet Count 281 th/mm3 (150-450); Red Blood Count 5.21 mil/mm3 (4.50-5.90); Red Cell Distribution Width 18.9 % (11.6-17.2); White Blood Count 8.6 th/mm3 (4.0-11.0)
[2018-05-25 20:04] LABS: Chloride 105 meq/L (98-107); Potassium 4.5 meq/L (3.5-5.1); Sodium 136 meq/L (136-145)
[2018-05-25 20:07] LABS: Anion Gap 4 meq/L (5-15); Carbon Dioxide 27.4 meq/L (21.0-32.0); Glucose,Random 104 mg/dL (74-106)
[2018-05-25 20:08] LABS: Blood Urea Nitrogen 14 mg/dL (7-18)
[2018-05-25] MEDS: Sodium Chlor 0.9% Inj 500 ML IV.SIG SCH ×2 (20:09→21:02)
[2018-05-25 20:10] LABS: Alanine Aminotransferase 36 U/L (12-78)
[2018-05-25 20:11] LABS: Aspartate Aminotransferase 30 U/L (15-37); Glomerular Filtration Rate Greater Than 89 mL/min (>89)
[2018-05-25 20:12] LABS: Total Protein 7.6 g/dL (6.4-8.2)
[2018-05-25 20:13] LABS: Alkaline Phosphatase 119 U/L (45-117)
--- NOTE | 2018-05-25 20:14 | XR ---
EXAM DATE: 05/25/2018 8:09 PM EST AGE/SEX: 72 years / Male INDICATIONS: Left mid distal lower leg wound. CLINICAL DATA: This is the patient's initial encounter. Patient reports that signs and symptoms have been present for 2 weeks and indicates a pain score of 3/10. MEDICAL/SURGICAL HISTORY: None. . COMPARISON: No prior exams available for comparison. FINDINGS: Deep laceration and/or ulceration seen of the soft tissues anterior laterally of the distal leg. No r adiopaque foreign bodies seen. No bone destruction, periosteal reaction or other acute osseous abnorm ality demonstrated. Otherwise, visualized soft tissues are diffusely edematous. CONCLUSION: Large and deep soft tissue laceration and/or ulceration anterolaterally of the distal leg without an associated perceptible acute bony abnormality. Electronically signed by: Pop Medellin MD Board Certified Radiologist 05/25/2018 8:12 PM EST
[2018-05-25 21:11] LABS: C-Reactive Protein 2.39 mg/dL (0.00-0.30)
[2018-05-25] MEDS ORDERED: Acetaminophen 325 MG Tablet PO PRN (21:32)
[2018-05-25] MEDS: Sod Chloride 0.9% Inj 1,000 ML IV.CONT SCH (21:55)
[2018-05-25] MEDS: Piperacil/Tazo 3.375 GM Premix 3.375 GM/50 ML PIGGYBACK IV.SIG SCH (21:55)
[2018-05-26] MEDS: Sodium Chlor 0.9% Inj 500 ML IV.SIG SCH (03:40)
[2018-05-26] MEDS: Sod Chloride 0.9% Inj 1,000 ML IV.CONT SCH ×3 (04:02→19:19)
[2018-05-26] MEDS: Piperacil/Tazo 3.375 GM Premix 3.375 GM/50 ML PIGGYBACK IV.SIG SCH ×2 (04:02→10:15)
[2018-05-26 06:27] LABS: Hematocrit 35.3 % (39.0-51.0); Mean Corpuscular HGB Conc 31.2 % (32.0-36.0); Mean Corpuscular Hemoglobin 23.9 pg (27.0-34.0); Mean Corpuscular Volume 76.7 fL (80.0-100.0); Mean Platelet Volume 8.1 fL (7.0-11.0); Platelet Count 248 th/mm3 (150-450); Red Blood Count 4.61 mil/mm3 (4.50-5.90); Red Cell Distribution Width 19.1 % (11.6-17.2); White Blood Count 7.6 th/mm3 (4.0-11.0)
[2018-05-26 06:38] LABS: Chloride 106 meq/L (98-107); Potassium 4.1 meq/L (3.5-5.1); Sodium 139 meq/L (136-145)
[2018-05-26 06:56] LABS: Anion Gap 4 meq/L (5-15); Blood Urea Nitrogen 12 mg/dL (7-18); Carbon Dioxide 28.6 meq/L (21.0-32.0); Glomerular Filtration Rate Greater Than 89 mL/min (>89); Glucose,Random 80 mg/dL (74-106)
[2018-05-26 07:30] LABS: Eosinophils 3 % (0-4); Lymphocytes 18 % (9-44); Monocytes 5 % (0-8); Platelet Estimate Normal (Normal); Platelet Morphology Normal (Normal)
--- NOTE | 2018-05-26 08:28 | P.HPIM ---
History of Present Illness Service: Hospitalist Primary Care Physician: UNKNOWN Chief Complaint: Left leg wound History of Present Illness: Mr. Cui is a pleasant 72-year-old male with no significant past medical history who presents to the emergency department on 05/25/2018 due to a wound to his left lower extremity. Patient is not able to give very detailed information. However, he reports existence of this on for at least 2 months. He does not have any fever or chills. Denies any significant pain that causes any problem with his ambulation. He does note drainage from the wound. On arrival blood pressure, heart rate, respiratory rate, temperature unremarkable. Lab work shows no leukocytosis. C-reactive protein was 2.39 (elevated). Tibia/fibula x-ray shows large and deep soft tissue laceration and/or ulceration. No perceptible acute bony abnormality. Past medical history: No significant medical history. Past surgical history: Tonsil/adenoidectomy, left cataract surgery. Family history: Father had cancer and mother had congestive heart failure. Social history: Patient smokes about half a pack a day. Denies using alcohol or illicit drugs. Review of Systems Review of Systems: all other systems reviewed are negative PMFSH Social History Social History Substance History: No History of Abuse Second Hand Smoke Exposure: Yes Smoking Status: Current some day smoker Tobacco Type: Cigarettes How Often Do You Have a Drink Containing Alcohol: Never Recent Travel in [facility] within the Last 8 Weeks: No Recent Out of Country Travel within the Last 8 Weeks: No Immunization History Tetanus Immunization: Unsure Medications and Allergies Allergies Allergy/AdvReac Type Severity Reaction Status Date / Time chlorpromazine Allergy Severe Confusion Verified 05/25/18 21:01 Home Medications Medication Instructions Recorded Confirmed Type No Known Home Medications 05/25/18 05/25/18 History Active Medications: Active Medications Acetaminophen (Tylenol) 650 mg PO Q4H PRN PRN Reason: Temp > 100.4 Sodium Chloride (Ns Inj) 1,000 mls @ 100 mls/hr IV.CONT .Q10H NANCY Last Admin: 05/26/18 04:02 Dose: 100 mls/hr Piperacillin/Tazobactam/Dextrose (Zosyn 3.375 Gm Premix) 3.375 gm in 50 mls @ 100 mls/hr IV.SIG Q6H NANCY Last Infusion: 05/26/18 04:35 Dose: Infused Ondansetron HCl (Zofran Inj) 4 mg IV.PUSH Q6H PRN PRN Reason: NAUSEA OR VOMITING Sodium Chloride (Ns Flush) 2 ml IV.FLUSH BID NANCY Sodium Chloride (Ns Flush) 2 ml IV.FLUSH PRN PRN PRN Reason: FLUSH AFTER USING IV ACCESS Last Admin: 05/26/18 04:06 Dose: 2 ml Results Labs CBC & Chem 7: 05/26/18 05:25 05/26/18 05:25 Imaging Impressions Tibia/Fibula X-Ray 05/25/18 19:28 CONCLUSION: Large and deep soft tissue laceration and/or ulceration anterolaterally of the distal leg without an associated perceptible acute bony abnormality. Caprini VTE Risk Assessment Caprini VTE Risk Assessment: Moderate/High Risk (score >= 2) Caprini Risk Assessment Model: Point Value = 1 Point Value = 2 Point Value = 3 Point Value = 5 Age 41-60 Minor surgery BMI > 25 kg/m2 Swollen legs Varicose veins or History of unexplained or recurrent spontaneous Oral contraceptives or hormone replacement Sepsis (< 1 month) Serious lung disease, including pneumonia (< 1 month) Abnormal pulmonary function Acute myocardial infarction Congestive heart failure (< 1 month) History of inflammatory bowel disease Medical patient at bed rest Age 61-74 Arthroscopic surgery Major open surgery (> 45 min) Laparoscopic surgery (> 45 min) Malignancy Confined to bed (> 72 hours) Immobilizing plaster cast Central venous access Age >= 75 History of VTE Family history of VTE Factor V Leiden Prothrombin [id number] Lupus anticoagulant Anticardiolipin antibodies Elevated serum homocysteine Heparin-induced thrombocytopenia Other congenital or acquired thrombophilia Stroke (< 1 month) Elective arthroplasty Hip, pelvis, or leg fracture Acute spinal cord injury (< 1 month) Prophylaxis Regimen: Total Risk Factor Score Risk Level Prophylaxis Regimen 0-1 Low Early ambulation 2 Moderate Order ONE of the following: *Sequential Compression Device (SCD) *Heparin 5000 units SQ BID 3-4 Higher Order ONE of the following medications: *Heparin 5000 units SQ TID *Enoxaparin/Lovenox 40 mg SQ daily (WT < 150 kg, CrCl > 30 mL/min) *Enoxaparin/Lovenox 30 mg SQ daily (WT < 150 kg, CrCl > 10-29 mL/min) *Enoxaparin/Lovenox 30 mg SQ BID (WT < 150 kg, CrCl > 30 mL/min) AND/OR *Sequential Compression Device (SCD) 5 or more Highest Order ONE of the following medications: *Heparin 5000 units SQ TID (Preferred with Epidurals) *Enoxaparin/Lovenox 40 mg SQ daily (WT < 150 kg, CrCl > 30 mL/min) *Enoxaparin/Lovenox 30 mg SQ daily (WT < 150 kg, CrCl > 10-29 mL/min) *Enoxaparin/Lovenox 30 mg SQ BID (WT < 150 kg, CrCl > 30 mL/min) AND *Sequential Compression Device (SCD) Assessment and Plan Plan Mr. Cui is a pleasant 72-year-old male with no significant past medical history who presents to the emergency department on 05/25/2018 due to left lower extremity infected wound. Patient is unable to provide specific history but reports existence of this on for at least 2 months. He denies any fever or chills. Denies any problem walking. Left ankle infected wound CRP is elevated. We will start patient on cefepime 2 g every 12 hours, vancomycin pharmacy to dose. We will consider infectious disease consultation based on podiatry recommendations and MRI results. Discontinue Zosyn. We will obtain podiatry consult and also MRI of left ankle. Obtain JIM. If abnormal, we can consult vascular surgery. Tobacco abuse Patient counseled. Full code. We will start patient on Lovenox 40 mg daily. H&P: Quality VTE Deep Vein Thrombosis/Pulmonary Embolism Present on Admission: No
[2018-05-26] MEDS ORDERED: Vancomycin Consult Pharmacy OTHER PRN (10:20)
[2018-05-26] MEDS ORDERED: Gadobutrol PF 10 MMOL/10 ML Vial (for RAD) IV.SIG ONE (14:42)
[2018-05-26] MEDS: Vancomycin Inj 1,500 MG in Sodium Chlor 0.9% Inj 500 ML IV.SIG SCH (15:01)
--- NOTE | 2018-05-26 15:29 | MR ---
EXAM DATE: 05/26/2018 3:04 PM EST AGE/SEX: 72 years / Male INDICATIONS: . Left anterior ankle wound. CLINICAL DATA: This is the patient's subsequent encounter. Patient reports that signs and symptoms h ave been present for 1 week and indicates a pain score of 4/10. MEDICAL/SURGICAL HISTORY: None. Tonsillectomy. COMPARISON: [facility], TIBIA FIBULA LEFT 2V, 05/25/2018. . TECHNIQUE: Multiplanar, multisequence MRI examination was performed with contrast and after the intr avenous administration of 8 ml Gadavist (gadobutrol) contrast as a single exam dose. FINDINGS: Soft tissue defect is present in the anterior portion of the patient's distal calf at the level of th e ankle. The marrow signal appears intact without signs of osteomyelitis. There is no evidence for fo ashlie soft tissue abscess. CONCLUSION: 1. Subcutaneous soft tissue defect without focal abscess or signs of osteomyelitis. Electronically signed by: Harish Ruiz MD Board Certified Radiologist 05/26/2018 3:28 PM EST
[2018-05-27] MEDS: Sod Chloride 0.9% Inj 1,000 ML IV.CONT SCH ×3 (01:47→22:18)
[2018-05-27] MEDS: Vancomycin Inj 1,500 MG in Sodium Chlor 0.9% Inj 500 ML IV.SIG SCH ×2 (01:47→14:41)
[2018-05-27] MEDS: Enoxaparin Inj 40 MG/0.4 ML Syringe SQ SCH (08:24)
--- NOTE | 2018-05-27 09:12 | P.PNIM ---
Subjective Interval history: Follow up for left ankle infected ulcer. Patient is currently doing well, slept well. No fever, chills. Podiatry consultation pending. Physical Exam Vital signs: Vital Signs 05/26/18 12:50 05/26/18 16:00 05/26/18 20:00 Temperature 98.5 F 98.6 F 98.5 F Pulse Rate 62 63 65 Respiratory Rate 20 20 18 Blood Pressure 158/75 H 130/68 139/67 Pulse Oximetry 95 94 L 95 05/27/18 00:00 Temperature 98.7 F Pulse Rate 59 L Respiratory Rate 18 Blood Pressure 166/87 H Pulse Oximetry 95 Intake & Output 05/26/18 05/27/18 05/27/18 18:59 06:59 18:59 Intake Total 2505 / 2505 1530 / 1530 Output Total 1450 / 1450 1900 / 1900 Balance 1055 / 1055 -370 / -370 Weight 84.5 kg Intake: IV 2265 / 2265 1050 / 1050 NS Inj 1,000 ML @ 100 mls/hr IV 1600 / 1600 950 / 950 .CONT .Q10H [facility] Rx#:[id number] Maxipime Inj 2,000 MG In NS Inj 100 / 100 100 / 100 100 ML @ 200 mls/hr IV.SIG Q12H [facility] Rx#:[id number] Zosyn 3.375 GM Premix 3.375 gm 50 / 50 In 50 ml @ 100 mls/hr IV.SIG Q6H [facility] Rx#:[id number] Vancomycin Inj 1,500 MG In NS 515 / 515 Inj 500 ML @ 250 mls/hr IV.SIG Q12H [facility] Rx#:[id number] Oral 240 / 240 480 / 480 Output: Urine 1450 / 1450 1900 / 1900 Other: Date of Last Bowel Movement 05/25/18 Narrative: GENERAL: Alert, NAD. SKIN: Warm and dry. HEAD: Normocephalic. EYES: No scleral icterus. No injection or drainage. NECK: Supple, trachea midline. No JVD or lymphadenopathy. CARDIOVASCULAR: Regular rate and rhythm without murmurs, gallops, or rubs. RESPIRATORY: Breath sounds equal bilaterally. No accessory muscle use. GASTROINTESTINAL: Abdomen soft, non-tender, nondistended. MUSCULOSKELETAL: No cyanosis, or edema. Left ulcerated wound covered with dressing. BACK: Nontender without obvious deformity. No CVA tenderness. Results Labs CBC & Chem 7: 05/26/18 05:25 05/26/18 05:25 Labs: Microbiology 05/25/18 21:30 Wound - Leg Gram Stain - Final Imaging Imaging: Impressions Ankle MRI 05/26/18 00:00 CONCLUSION: 1. Subcutaneous soft tissue defect without focal abscess or signs of osteomyelitis. Assessment and Plan Plan Mr. Cui is a pleasant 72-year-old male with no significant past medical history who presents to the emergency department on 05/25/2018 due to left lower extremity infected wound. Patient is unable to provide specific history but reports existence of this on for at least 2 months. He denies any fever or chills. Denies any problem walking. Left ankle infected wound CRP is elevated. We will continue patient on cefepime 2 g every 12 hours, vancomycin pharmacy to dose. We will consider infectious disease consultation based on podiatry recommendations podiatry consult pending. MRI of left ankle shows no abscess or osteomyelitis. JIM done, report pending. If abnormal, we can consult vascular surgery. Hypertension -Amlodipine 5mg Qday. Tobacco abuse Patient counseled. Full code. Lovenox 40 mg SQ daily. Progress Note: Quality VTE Deep Vein Thrombosis/Pulmonary Embolism Present on Admission: No
[2018-05-27] MEDS ORDERED: amLODIPine 5 MG Tablet PO ONE (09:30)
--- NOTE | 2018-05-27 20:48 | P.CONPOD ---
History of Present Illness Service: Foot and ankle surgery/podiatry Consult date: 05/27/18 Reason for Consult: Left leg wound Primary Care Provider: UNKNOWN Chief Complaint: Left leg wound History of Present Illness: podiatry consulted for this 72-year-old male who was brought in by EMS secondary to a wound to his left leg. Patient is a poor historian he does not know how long it has been there. He states he has no insurance but follows with a doctor on [address]. He denies any nausea vomiting fevers or chills. Patient was very emotional about removing the dressing and seeing the wound. He was very concerned he was going to loose his leg. Review of Systems All other systems reviewed negative except as stated in HPI PMFSH - History History Provided By: Patient - Tobacco History Second Hand Smoke Exposure: Yes Tobacco Use In Past 30 Days: Yes Smoking Status: Current some day smoker Tobacco Type: Cigarettes - Alcohol History How Often Do You Have a Drink Containing Alcohol: Never - Substance Use History Substance History: No History of Abuse - Travel History Recent Travel in the [facility] Within the Last 8 Weeks: No Recent Travel Out of the Country Within the Last 8 Weeks: No - Immunization History Tetanus Immunization: Unsure Medications and Allergies Active Medications: Active Medications Acetaminophen (Tylenol) 650 mg PO Q4H PRN PRN Reason: Temp > 100.4 Amlodipine Besylate (Norvasc) 5 mg PO DAILY [facility] Enoxaparin Sodium (Lovenox Inj) 40 mg SQ DAILY [facility] Last Admin: 05/27/18 08:24 Dose: 40 mg Sodium Chloride (Ns Inj) 1,000 mls @ 100 mls/hr IV.CONT .Q10H [facility] Last Admin: 05/27/18 08:23 Dose: Not Given Cefepime HCl 2,000 mg/ Sodium (Chloride) 100 mls @ 200 mls/hr IV.SIG Q12H [facility] Last Infusion: 05/27/18 14:29 Dose: Infused Vancomycin HCl 1,500 mg/ (Sodium Chloride) 515 mls @ 250 mls/hr IV.SIG Q12H [facility] Last Admin: 05/27/18 14:41 Dose: 250 mls/hr Miscellaneous Information ([facility] [facility] Ordered Lab Info) 0 each OTHER ONCE ONE Stop: 05/28/18 01:46 Ondansetron HCl (Zofran Inj) 4 mg IV.PUSH Q6H PRN PRN Reason: NAUSEA OR VOMITING Pharmacy Profile Note (Vancomycin Consult Pharmacy) 1 each OTHER UNSCH PRN PRN Reason: Pharmacy to dose Sodium Chloride (Ns Flush) 2 ml IV.FLUSH BID [facility] Last Admin: 05/27/18 08:24 Dose: 2 ml Sodium Chloride (Ns Flush) 2 ml IV.FLUSH PRN PRN PRN Reason: FLUSH AFTER USING IV ACCESS Last Admin: 05/26/18 22:47 Dose: 2 ml Allergies Allergy/AdvReac Type Severity Reaction Status Date / Time chlorpromazine Allergy Severe Confusion Verified 05/25/18 21:01 Home Medications Medication Instructions Recorded Confirmed Type No Known Home Medications 05/25/18 05/25/18 History Physical Exam Vital signs: Vital Signs 05/27/18 00:00 05/27/18 08:00 05/27/18 12:00 Temperature 98.7 F 98.8 F 97.5 F L Pulse Rate 59 L 69 69 Respiratory Rate 18 20 20 Blood Pressure 166/87 H 156/74 H 170/80 H Pulse Oximetry 95 95 05/27/18 16:50 Temperature 98.6 F Pulse Rate 64 Respiratory Rate 20 Blood Pressure 151/79 H Pulse Oximetry 96 Intake & Output 05/27/18 05/27/18 05/28/18 06:59 18:59 06:59 Intake Total 2029 / 2029 475 / 475 Output Total 1900 / 1900 1400 / 1400 Balance 130 / 130 -925 / -925 Weight 84.5 kg Intake: IV 1550 / 1550 115 / 115 NS Inj 1,000 ML @ 100 mls/hr IV 950 / 950 .CONT .Q10H [facility] Rx#:[id number] Maxipime Inj 2,000 MG In NS Inj 100 / 100 100 / 100 100 ML @ 200 mls/hr IV.SIG Q12H [facility] Rx#:[id number] Vancomycin Inj 1,500 MG In NS 500 / 500 15 / 15 Inj 500 ML @ 250 mls/hr IV.SIG Q12H [facility] Rx#:[id number] Oral 480 / 480 360 / 360 Output: Urine 1900 / 1900 1400 / 1400 Other: # Voids 2 Date of Last Bowel Movement 05/25/18 Narrative: GENERAL: This is a well-nourished, well-developed patient, in no apparent distress. SKIN: Left leg wound HEAD: Atraumatic. EYES: Pupils equal round and reactive. ENT: Airway patent. NECK: Trachea midline. RESPIRATORY: Nonlabored breathing. MUSCULOSKELETAL:. Negative Homans sign bilaterally. NEUROLOGICAL: Awake and alert. Normal speech. Lower extremity physical exam: Vascular: Dorsalis pedis 2/4, posterior tibial 1/4. Capillary refill time within normal limits to digits x5 bilateral foot. Edema present mildly left lower extremity. Neuro: Gross sensation intact to bilateral lower extremity. Pinpoint sensation intact. No hyperalgesia noted to bilateral lower extremity Dermatology: Left leg anterior wound with hyperkeratotic borders and fibro- granular base. No surrounding erythema noted. No malodor. No probe to bone. Musculoskeletal: Tender to palpation to left leg ulcer upon mechanical debridement. Results - Labs CBC & Chem 7: 05/26/18 05:25 05/26/18 05:25 Microbiology 05/25/18 21:30 Wound - Leg Gram Stain - Final 05/25/18 21:30 Wound - Leg Wound Culture - Preliminary Proteus species Assessment and Plan - Plan 72-year-old male with left leg wound, deep to muscle Patient examined and evaluated all questions answered To OR tomorrow for debridement and irrigation with wound VAC placement Anticipate return to the OR for graft placement in 48-72 hours after surgery Will discuss placement with case management, due to depth and severity of wound patient will need at the very least home health care to manage wound VAC however patient states he does not have a car and only has a bicycle would prefer patient be placed in a rehab facility to allow for proper healing of leg wound as he is high risk for repeat infection and possible eventual limb loss if this is not adequately cared for N.p.o. after midnight Please obtain consent to read left leg debridement irrigation with wound VAC placement
[2018-05-28] MEDS: Vancomycin Inj 1,500 MG in Sodium Chlor 0.9% Inj 500 ML IV.SIG SCH (01:32)
[2018-05-28] MEDS ORDERED: Pharmacy Ordered Lab Info OTHER ONE (01:45)
[2018-05-28] MEDS ORDERED: Chlorhexidine Gluconate 2% 1 Pack (2 Cloths) TOPICAL ONE (07:02)
[2018-05-28] MEDS ORDERED: Bupivacaine PF 0.5% Inj 30 ML Vial ONE (07:07)
[2018-05-28] MEDS ORDERED: Neomycin/Polymyxin G.U. Irrigant 1 ML Ampul ONE (07:07)
--- NOTE | 2018-05-28 07:25 | P.PNPOD ---
Subjective Interval history: Patient seen in preop. Agrees with planned procedure. No concerns at this time. Physical Exam Vital signs: Vital Signs 05/27/18 08:00 05/27/18 12:00 05/27/18 16:50 Temperature 98.8 F 97.5 F L 98.6 F Pulse Rate 69 69 64 Respiratory Rate 20 20 20 Blood Pressure 156/74 H 170/80 H 151/79 H Pulse Oximetry 95 96 05/27/18 20:00 05/28/18 00:00 05/28/18 04:00 Temperature 98.5 F 97.6 F 96.9 F L Pulse Rate 64 63 57 L Respiratory Rate 20 20 20 Blood Pressure 163/82 H 167/87 H 162/90 H Pulse Oximetry 95 95 95 05/28/18 07:04 Temperature 96.9 F L Pulse Rate 57 L Respiratory Rate 20 Blood Pressure 162/90 H Pulse Oximetry 95 Intake & Output 05/27/18 05/28/18 05/28/18 18:59 06:59 18:59 Intake Total 475 / 475 2130 / 2130 Output Total 1400 / 1400 1450 / 1450 Balance -925 / -925 680 / 680 Weight 84.3 kg Intake: IV 115 / 115 2130 / 2130 NS Inj 1,000 ML @ 100 mls/hr IV 1000 / 1000 .CONT .Q10H [facility] Rx#:[id number] Maxipime Inj 2,000 MG In NS Inj 100 / 100 100 / 100 100 ML @ 200 mls/hr IV.SIG Q12H [facility] Rx#:[id number] Vancomycin Inj 1,500 MG In NS 15 / 15 1030 / 1030 Inj 500 ML @ 250 mls/hr IV.SIG Q12H [facility] Rx#:[id number] Oral 360 / 360 0 / 0 Output: Urine 1400 / 1400 1450 / 1450 Other: # Voids 2 Date of Last Bowel Movement 05/25/18 05/27/18 Narrative: Dressing to left lower extremity clean, dry and intact. Neurovascular intact. Medications and Allergies Active Medications: Active Medications Acetaminophen (Tylenol) 650 mg PO Q4H PRN PRN Reason: Temp > 100.4 Amlodipine Besylate (Norvasc) 5 mg PO DAILY [facility] Enoxaparin Sodium (Lovenox Inj) 40 mg SQ DAILY [facility] Last Admin: 05/27/18 08:24 Dose: 40 mg Sodium Chloride (Ns Inj) 1,000 mls @ 100 mls/hr IV.CONT .Q10H [facility] Last Admin: 05/27/18 22:18 Dose: 100 mls/hr Cefepime HCl 2,000 mg/ Sodium (Chloride) 100 mls @ 200 mls/hr IV.SIG Q12H [facility] Last Infusion: 05/28/18 00:05 Dose: Infused Vancomycin HCl 1,500 mg/ (Sodium Chloride) 515 mls @ 250 mls/hr IV.SIG Q12H [facility] Last Infusion: 05/28/18 03:16 Dose: Infused Lactated Ringer's (Lr 1000 Ml Inj) 1,000 mls @ 30 mls/hr IV.SIG .Q24H [facility] Stop: 05/29/18 07:14 Last Admin: 05/28/18 06:57 Dose: 30 mls/hr Sodium Chloride (Ns Inj) 500 mls @ 30 mls/hr IV.SIG .Q10H [facility] Ondansetron HCl (Zofran Inj) 4 mg IV.PUSH Q6H PRN PRN Reason: NAUSEA OR VOMITING Pharmacy Profile Note (Vancomycin Consult Pharmacy) 1 each OTHER UNSCH PRN PRN Reason: Pharmacy to dose Sodium Chloride (Ns Flush) 2 ml IV.FLUSH BID [facility] Last Admin: 05/27/18 22:18 Dose: Not Given Sodium Chloride (Ns Flush) 2 ml IV.FLUSH PRN PRN PRN Reason: FLUSH AFTER USING IV ACCESS Last Admin: 05/26/18 22:47 Dose: 2 ml Allergies Allergy/AdvReac Type Severity Reaction Status Date / Time chlorpromazine Allergy Severe Confusion Verified 05/25/18 21:01 Home Medications Medication Instructions Recorded Confirmed Type No Known Home Medications 05/25/18 05/25/18 History Results - Labs CBC & Chem 7: 05/26/18 05:25 05/26/18 05:25 Laboratory Results - last 24 hr 05/28/18 01:45 Vancomycin Trough 19.1 H Microbiology 05/25/18 21:30 Wound - Leg Gram Stain - Final 05/25/18 21:30 Wound - Leg Wound Culture - Preliminary Proteus species Assessment and Plan - Plan 72-year-old male with left leg wound, deep to muscle Patient examined and evaluated all questions answered To OR today for debridement and irrigation with wound VAC placement Consent signed LLE marked Anticipate return to the OR for graft placement in 48-72 hours after surgery; will re evaluate progression of wound Will discuss placement with case management, due to depth and severity of wound patient will need at the very least home health care to manage wound VAC however patient states he does not have a car and only has a bicycle would prefer patient be placed in a rehab facility to allow for proper healing of leg wound as he is high risk for repeat infection and possible eventual limb loss if this is not adequately cared for
[2018-05-28] MEDS ORDERED: Sodium Chlor 0.9% Inj 500 ML IV.SIG SCH (08:00)
[2018-05-28] MEDS ORDERED: Misc Info for Pharmacy OTHER STA (08:13)
--- NOTE | 2018-05-28 08:16 | P.PCN ---
Date of procedure: 05/28/18 Pre-op diagnosis: Left leg wound deep to muscle Post-op diagnosis: same Procedure: Left leg wound debridement and irrigation with wound vac placement Anesthesia: MADINAA Surgeon: Elvie Avila Pathology: other (wound culture) Condition: stable Disposition: PACU
--- NOTE | 2018-05-28 09:24 | MP ---
cc: Elvie Avila DPM DATE OF OPERATION: 05/28/2018 SURGEON: Elvie Avila DPM. PRODUCT ENGINEER: None. PREOPERATIVE DIAGNOSIS: Left leg wound deep to muscle. POSTOPERATIVE DIAGNOSIS: Left leg wound deep to muscle. PROCEDURE PERFORMED: Left leg debridement and irrigation with wound VAC placement. ANESTHESIA: General. HEMOSTASIS: None. ESTIMATED BLOOD LOSS: 10 mL. MATERIALS: Wound VAC. INJECTABLES: 10 mL of 0.5% Marcaine plain. COMPLICATIONS: None. INDICATIONS FOR PROCEDURE: The patient is a 72-year-old male, who is a poor historian, who does not remember how he got a left leg wound. Wound is deep to muscle. Reports mild pain. There is no drainage, erythema, or edema. Culture grew out Proteus. The decision was made to take the patient to OR for debridement and irrigation with VAC placement. The patient understands all risks, alternatives, benefits, and complications of the procedure. He would like to continue with surgical intervention. DESCRIPTION OF PROCEDURE: The patient was brought to the operating room, placed on the operating room table in supine position. General anesthesia was then induced. Following induction of general anesthesia, the left leg was prepped and draped in the usual sterile manner. Attention was directed to the left leg wound. Sharp debridement was performed with a #15 blade. All borders of the ulcer were sharply excised. All necrotic nonviable tissue was excised. VersaJet was utilized to smooth down any hypergranulation tissue and remove any necrotic tissue. Site was copiously irrigated. Wound culture was taken post-irrigation. Wound VAC was applied. It was noted to be functioning at 125 mmHg suction and intact. Cast padding and Jovon were applied to left lower extremity. The patient tolerated the procedure and anesthesia well. He was transferred from the OR to PACU with vital signs stable, and neurovascular status intact. Anticipate return to OR, when cultures are negative for graft placement, as this is a deep wound to muscle. Elvie Avila DPM JIFrancis/rh , 08:38 AM , 08:44 AM
--- NOTE | 2018-05-28 09:25 | ECHRPT ---
EXAM DATE: 05/27/2018 10:46 AM EST AGE/SEX: 72 years / Male INDICATIONS: cellulitis, leg wound CLINICAL DATA: This is the patient's initial encounter. Patient reports that signs and symptoms have been present for 1 week and indicates a pain score of 2/10. MEDICAL/SURGICAL HISTORY: None. None. COMPARISON: No prior exams available for comparison. TECHNIQUE: Four-cuff ankle and brachial pressures were obtained. Pulse cuff waveform tracings of the ankles were recorded, and ankle-brachial indices were calculated. PRESSURES (mmHg): Brachial (arm) : RIGHT: 150, LEFT: IV Ankle : RIGHT: 120, LEFT: 150 JIM : RIGHT: 0.80, LEFT: 1.00 FINDINGS: There is mild reduction in the ankle brachial ratio on the right side without any significant hemodyn amic compromise. CONCLUSION: 1. No evidence for hemodynamically significant stenosis based on this technique. Electronically signed by: Harish Ruiz MD Board Certified Radiologist 05/28/2018 9:23 AM EST
--- NOTE | 2018-05-28 09:55 | P.PNIM ---
Subjective Interval history: Follow up for left lower ext deep wound. Patient underwent surgical I&D as well as wound vac placement today by Podiatry. No fever, chills. Pain well controlled. Physical Exam Vital signs: Vital Signs 05/27/18 12:00 05/27/18 16:50 05/27/18 20:00 Temperature 97.5 F L 98.6 F 98.5 F Pulse Rate 69 64 64 Respiratory Rate 20 20 20 Blood Pressure 170/80 H 151/79 H 163/82 H Pulse Oximetry 95 96 95 05/28/18 00:00 05/28/18 04:00 05/28/18 07:04 Temperature 97.6 F 96.9 F L 96.9 F L Pulse Rate 63 57 L 57 L Respiratory Rate 20 20 20 Blood Pressure 167/87 H 162/90 H 162/90 H Pulse Oximetry 95 95 95 05/28/18 08:18 05/28/18 08:45 05/28/18 08:50 Temperature 97.6 F Pulse Rate 54 L 60 Respiratory Rate 12 14 Blood Pressure 127/71 158/74 H Pulse Oximetry 100 97 96 Intake & Output 05/27/18 05/28/18 05/28/18 18:59 06:59 18:59 Intake Total 475 / 475 2130 / 2130 1300 / 1300 Output Total 1400 / 1400 1450 / 1450 Balance -925 / -925 680 / 680 1300 / 1300 Weight 84.3 kg Intake: IV 115 / 115 2130 / 2130 700 / 700 NS Inj 1,000 ML @ 100 mls/hr IV 1000 / 1000 .CONT .Q10H [facility] Rx#:[id number] Maxipime Inj 2,000 MG In NS Inj 100 / 100 100 / 100 100 ML @ 200 mls/hr IV.SIG Q12H [facility] Rx#:[id number] LR 1000 mL Inj 1,000 ML @ 30 700 / 700 mls/hr IV.SIG .Q24H [facility] Rx#: [id number] Vancomycin Inj 1,500 MG In NS 15 / 15 1030 / 1030 Inj 500 ML @ 250 mls/hr IV.SIG Q12H [facility] Rx#:[id number] Oral 360 / 360 0 / 0 Anesthesia Amount 600 / 600 Output: Urine 1400 / 1400 1450 / 1450 Other: Mode Setting Left Ankle Continuous # Voids 2 Date of Last Bowel Movement 05/25/18 05/27/18 Narrative: GENERAL: Alert, NAD. SKIN: Warm and dry. HEAD: Normocephalic. EYES: No scleral icterus. No injection or drainage. NECK: Supple, trachea midline. No JVD or lymphadenopathy. CARDIOVASCULAR: Regular rate and rhythm without murmurs, gallops, or rubs. RESPIRATORY: Breath sounds equal bilaterally. No accessory muscle use. GASTROINTESTINAL: Abdomen soft, non-tender, nondistended. MUSCULOSKELETAL: No cyanosis, or edema. Left lower ext wound wrapped, wound vac in place. BACK: Nontender without obvious deformity. No CVA tenderness. Results Labs CBC & Chem 7: 05/26/18 05:25 05/26/18 05:25 Labs: Microbiology 05/25/18 21:30 Wound - Leg Gram Stain - Final 05/25/18 21:30 Wound - Leg Wound Culture - Preliminary Proteus species Imaging Imaging: Impressions Extremity Arterial Study 05/26/18 00:00 CONCLUSION: 1. No evidence for hemodynamically significant stenosis based on this technique. Assessment and Plan Plan Mr. Cui is a pleasant 72-year-old male with no significant past medical history who presents to the emergency department on 05/25/2018 due to left lower extremity infected wound. Patient is unable to provide specific history but reports existence of this on for at least 2 months. He denies any fever or chills. Denies any problem walking. Left ankle infected wound CRP is elevated. Culture is growing Proteus, Staph Aureus, Group B strep. -Will d/c Cefepime and start Cefazolin and continue Vancomycin until sensitivity for Staph comes back. -IF Staph is MSSA, we can d/c Vanc and continue monotherapy with Cefazolin and at the time of discharge Keflex PO. podiatry input greatly appreciated. MRI of left ankle shows no abscess or osteomyelitis. JIM unremarkable. Hypertension -Amlodipine 5mg Qday. Tobacco abuse Patient counseled. Full code. Lovenox 40 mg SQ daily. Progress Note: Quality VTE Deep Vein Thrombosis/Pulmonary Embolism Present on Admission: No
[2018-05-28] MEDS: Sod Chloride 0.9% Inj 1,000 ML IV.CONT SCH ×4 (10:00→20:27)
[2018-05-28] MEDS: amLODIPine 5 MG Tablet PO SCH (11:51)
[2018-05-28] MEDS: Enoxaparin Inj 40 MG/0.4 ML Syringe SQ SCH (14:19)
[2018-05-28] MEDS: Vancomycin Inj 1,250 MG in Sodium Chlor 0.9% Inj 250 ML IV.SIG SCH (14:19)
--- NOTE | 2018-05-28 14:25 | ECG ---
Date Performed: 05/28/2018 Time Performed: 03:44:31 PTAGE: 72 years EKG: SINUS BRADYCARDIA WITH FIRST DEGREE AV BLOCK POSSIBLE LEFT ATRIAL ENLARGEMENT RIGHT BUNDLE BRANCH BLOCK LEFT ANTERIOR FASCICULAR BLOCK ABNORMAL ECG NO PREVIOUS TRACING DOCTOR: Andrew Ibarra Interpretating Date/Time 05/28/2018 14:24:41
[2018-05-28] MEDS ORDERED: ceFAZolin Inj 2,000 MG in Sodium Chlor 0.9% Inj 80 ML IV.SIG SCH (19:45)
[2018-05-28] MEDS: ceFAZolin 2 GM Premix Inj 2 GM/50 ML PIGGYBACK IV.SIG SCH (20:40)
[2018-05-29] MEDS: Vancomycin Inj 1,250 MG in Sodium Chlor 0.9% Inj 250 ML IV.SIG SCH ×2 (01:30→15:23)
[2018-05-29] MEDS: ceFAZolin 2 GM Premix Inj 2 GM/50 ML PIGGYBACK IV.SIG SCH ×3 (04:37→20:17)
[2018-05-29] MEDS: Sod Chloride 0.9% Inj 1,000 ML IV.CONT SCH ×3 (06:13→16:35)
[2018-05-29] MEDS: Enoxaparin Inj 40 MG/0.4 ML Syringe SQ SCH (08:16)
[2018-05-29] MEDS: amLODIPine 5 MG Tablet PO SCH (08:17)
--- NOTE | 2018-05-29 10:41 | P.PNIM ---
Subjective Interval history: In bed appears in not acute distress at this time. No fever or chills overnight. No nausea or vomiting able to eat fairly well. Pain at the surgical site is fairly controlled by medications. Denies chest pain or shortness of breath saturating well on room air. No cough. Physical Exam Vital signs: Vital Signs 05/28/18 12:00 05/28/18 16:00 05/28/18 20:00 Temperature 96.4 F L 97.1 F L 97.7 F Pulse Rate 60 66 67 Respiratory Rate 20 20 20 Blood Pressure 135/71 138/63 134/61 Pulse Oximetry 97 96 94 L 05/29/18 00:00 05/29/18 08:00 Temperature 97.8 F 97.3 F L Pulse Rate 57 L 59 L Respiratory Rate 20 20 Blood Pressure 152/72 H 161/78 H Pulse Oximetry 95 95 Intake & Output 05/28/18 05/29/18 05/29/18 18:59 06:59 18:59 Intake Total 3872.5 / 3872.5 1842.5 / 1842.5 240 / 240 Output Total 2550 / 2550 2250 / 2250 1000 / 1000 Balance 1322.5 / 1322.5 -407.5 / -407.5 -760 / -760 Weight 84.5 kg Intake: IV 1562.5 / 1562.5 1362.5 / 1362.5 NS Inj 1,000 ML @ 100 mls/hr IV 500 / 500 1000 / 1000 .CONT .Q10H [facility] Rx#:[id number] Maxipime Inj 2,000 MG In NS Inj 100 / 100 100 ML @ 200 mls/hr IV.SIG Q12H [facility] Rx#:[id number] LR 1000 mL Inj 1,000 ML @ 30 700 / 700 mls/hr IV.SIG .Q24H [facility] Rx#: [id number] Vancomycin Inj 1,250 MG In NS 262.5 / 262.5 262.5 / 262.5 Inj 250 ML @ 250 mls/hr IV.SIG Q12H [facility] Rx#:[id number] Ancef 2 GM Premix Inj 2 gm In 100 / 100 50 ml @ 100 mls/hr IV.SIG Q8H [facility] Rx#:[id number] Oral 1610 / 1610 480 / 480 240 / 240 Anesthesia Amount 600 / 600 Other 100 / 100 Output: Urine 2550 / 2550 2250 / 2250 1000 / 1000 Other: Mode Setting Left Ankle Continuous Continuous # Voids 5 Date of Last Bowel Movement 05/27/18 # Bowel Movements 1 Narrative: GENERAL: 72 yo male, appears in NAD. CARDIOVASCULAR: Regular rate and rhythm without murmurs, gallops, or rubs. RESPIRATORY: Breath sounds equal bilaterally. No accessory muscle use. GASTROINTESTINAL: Abdomen soft, non-tender, nondistended. MUSCULOSKELETAL: No cyanosis, or edema. Left lower ext wound wrapped, wound vac in place. BACK: Nontender without obvious deformity. No CVA tenderness. Results Labs CBC & Chem 7: 05/26/18 05:25 05/26/18 05:25 Labs: Microbiology 05/25/18 21:30 Wound - Leg Gram Stain - Final 05/25/18 21:30 Wound - Leg Wound Culture - Final Proteus mirabilis Staphylococcus aureus Group B beta Strep 05/28/18 07:45 Wound - Leg Acid Fast Bacilli Smear - Final No acid fast bacilli seen 05/28/18 07:45 Wound - Leg Gram Stain - Final 05/28/18 07:45 Wound - Leg Fungal Smear - Final No fungal elements seen Assessment and Plan Plan Mr. Cui is a pleasant 72-year-old male with no significant past medical history who presents to the emergency department on 05/25/2018 due to left lower extremity infected wound. Patient is unable to provide specific history but reports existence of this on for at least 2 months. He denies any fever or chills. Denies any problem walking. Left ankle infected wound CRP is elevated. Culture is growing Proteus, Staph Aureus, Group B strep. -Will d/c Cefepime and start Cefazolin and continue Vancomycin until sensitivity for Staph comes back. -IF Staph is MSSA, we can d/c Vanc and continue monotherapy with Cefazolin and at the time of discharge Keflex PO. podiatry input greatly a -s/p Left leg wound debridement and irrigation with wound vac placement by Dr Avila 05.28.18 Hypertension -Amlodipine 5mg Qday. Tobacco abuse Patient counseled. Full code. Lovenox 40 mg SQ daily. Discussed with the patient, nurse. Discharge when improved and cleared by podiatry. Patient has a wound VAC Progress Note: Quality VTE Deep Vein Thrombosis/Pulmonary Embolism Present on Admission: No
[2018-05-29] MEDS ORDERED: VANCOMYCIN TROUGH OTHER ONE (13:45)
[2018-05-29 14:51] LABS: Glomerular Filtration Rate Greater Than 89 mL/min (>89)
--- NOTE | 2018-05-29 22:51 | P.PNPOD ---
Subjective Interval history: Patient seen bedside. Resting comfortably. No concerns at this time. Physical Exam Vital signs: Vital Signs 05/29/18 00:00 05/29/18 08:00 05/29/18 12:00 Temperature 97.8 F 97.3 F L 97.2 F L Pulse Rate 57 L 59 L 63 Respiratory Rate 20 20 21 Blood Pressure 152/72 H 161/78 H 148/68 H Pulse Oximetry 95 95 96 05/29/18 16:00 05/29/18 20:00 Temperature 98.9 F 99 F Pulse Rate 70 71 Respiratory Rate 21 20 Blood Pressure 155/76 H 131/62 Pulse Oximetry 96 98 Intake & Output 05/29/18 05/29/18 05/30/18 06:59 18:59 06:59 Intake Total 1842.5 / 1842.5 2372.5 / 2372.5 50 / 50 Output Total 2250 / 2250 1600 / 1600 Balance -407.5 / -407.5 772.5 / 772.5 50 / 50 Weight 84.5 kg Intake: IV 1362.5 / 1362.5 1212.5 / 1212.5 50 / 50 NS Inj 1,000 ML @ 100 mls/hr IV 1000 / 1000 900 / 900 .CONT .Q10H [facility] Rx#:[id number] Vancomycin Inj 1,250 MG In NS 262.5 / 262.5 262.5 / 262.5 Inj 250 ML @ 250 mls/hr IV.SIG Q12H [facility] Rx#:[id number] Ancef 2 GM Premix Inj 2 gm In 100 / 100 50 / 50 50 / 50 50 ml @ 100 mls/hr IV.SIG Q8H [facility] Rx#:[id number] Oral 480 / 480 1160 / 1160 Output: Urine 2250 / 2250 1600 / 1600 Other: Mode Setting Left Ankle Continuous # Voids 1 Date of Last Bowel Movement 05/27/18 # Bowel Movements 1 Narrative: Wound vac in place and functioning at 125mmgHG. Leak alert however there is an intact seal clinically evident. No erythema noted surrounding left leg wound. Edema improved to left leg. Vascular status intact. Medications and Allergies Active Medications: Active Medications Acetaminophen (Tylenol) 650 mg PO Q4H PRN PRN Reason: Temp > 100.4 Amlodipine Besylate (Norvasc) 5 mg PO DAILY [facility] Last Admin: 05/29/18 08:17 Dose: 5 mg Enoxaparin Sodium (Lovenox Inj) 40 mg SQ DAILY [facility] Last Admin: 05/29/18 08:16 Dose: 40 mg Sodium Chloride (Ns Inj) 1,000 mls @ 100 mls/hr IV.CONT .Q10H [facility] Last Admin: 05/29/18 16:35 Dose: 100 mls/hr Sodium Chloride (Ns Inj) 500 mls @ 30 mls/hr IV.SIG .Q10H [facility] Last Admin: 05/28/18 09:20 Dose: Not Given Vancomycin HCl 1,250 mg/ (Sodium Chloride) 262.5 mls @ 250 mls/hr IV.SIG Q12H [facility] Last Infusion: 05/29/18 16:35 Dose: Infused Cefazolin Sodium/Dextrose (Ancef 2 Gm Premix Inj) 2 gm in 50 mls @ 100 mls/hr IV.SIG Q8H [facility] Last Infusion: 05/29/18 21:06 Dose: Infused Ondansetron HCl (Zofran Inj) 4 mg IV.PUSH Q6H PRN PRN Reason: NAUSEA OR VOMITING Pharmacy Profile Note (Vancomycin Consult Pharmacy) 1 each OTHER UNSCH PRN PRN Reason: Pharmacy to dose Sodium Chloride (Ns Flush) 2 ml IV.FLUSH BID [facility] Last Admin: 05/29/18 20:19 Dose: Not Given Sodium Chloride (Ns Flush) 2 ml IV.FLUSH PRN PRN PRN Reason: FLUSH AFTER USING IV ACCESS Last Admin: 05/26/18 22:47 Dose: 2 ml Allergies Allergy/AdvReac Type Severity Reaction Status Date / Time chlorpromazine Allergy Severe Confusion Verified 05/25/18 21:01 Home Medications Medication Instructions Recorded Confirmed Type No Known Home Medications 05/25/18 05/25/18 History Results - Labs CBC & Chem 7: 05/26/18 05:25 05/29/18 14:14 Laboratory Results - last 24 hr 05/29/18 05/29/18 14:14 14:14 Creatinine 0.71 Estimated GFR Greater than 89 Vancomycin Trough 15.7 H Microbiology 05/28/18 07:45 Wound - Leg Gram Stain - Final 05/28/18 07:45 Wound - Leg Wound Culture - Preliminary Staphylococcus species 05/25/18 21:30 Wound - Leg Gram Stain - Final 05/25/18 21:30 Wound - Leg Wound Culture - Final Proteus mirabilis Staphylococcus aureus Group B beta Strep Assessment and Plan - Plan 72-year-old male with left leg wound, deep to muscle Patient examined and evaluated all questions answered Wound care to change wound vac tomorrow Will sign out to oncoming physician immigration coordinator, will monitor for possible graft placement during this admission. Will discuss placement with case management, due to depth and severity of wound patient will need at the very least home health care to manage wound VAC however patient states he does not have a car and only has a bicycle would prefer patient be placed in a rehab facility to allow for proper healing of leg wound as he is high risk for repeat infection and possible eventual limb loss if this is not adequately cared for
[2018-05-30] MEDS: Vancomycin Inj 1,250 MG in Sodium Chlor 0.9% Inj 250 ML IV.SIG SCH ×2 (01:21→14:36)
[2018-05-30] MEDS: Sod Chloride 0.9% Inj 1,000 ML IV.CONT SCH ×3 (01:49→21:20)
[2018-05-30] MEDS: ceFAZolin 2 GM Premix Inj 2 GM/50 ML PIGGYBACK IV.SIG SCH ×3 (05:28→21:19)
[2018-05-30 07:51] LABS: Baso % (Auto) 0.7 % (0.0-2.0); Eos # (Auto) 0.4 th/mm3 (0.0-0.4); Eos % (Auto) 5.8 % (0.0-4.0); Hematocrit 37.5 % (39.0-51.0); Hemoglobin 11.7 gm/dL (13.0-17.0); Lymph # (Auto) 1.3 th/mm3 (1.0-4.8); Lymph % (Auto) 17.7 % (9.0-44.0); Mean Corpuscular HGB Conc 31.3 % (32.0-36.0); Mean Corpuscular Hemoglobin 24.3 pg (27.0-34.0); Mean Corpuscular Volume 77.8 fL (80.0-100.0); Mean Platelet Volume 8.1 fL (7.0-11.0); Mono # (Auto) 0.8 th/mm3 (0.0-0.9); Mono % (Auto) 10.9 % (0.0-8.0); Neut # (Auto) 4.6 th/mm3 (1.8-7.7); Neut % (Auto) 64.9 % (16.0-70.0); Platelet Count 241 th/mm3 (150-450); Red Blood Count 4.83 mil/mm3 (4.50-5.90); Red Cell Distribution Width 19.2 % (11.6-17.2); White Blood Count 7.1 th/mm3 (4.0-11.0)
[2018-05-30 07:59] LABS: Chloride 106 meq/L (98-107); Potassium 3.6 meq/L (3.5-5.1); Sodium 141 meq/L (136-145)
[2018-05-30 08:04] LABS: Calcium 8.2 mg/dL (8.5-10.1)
[2018-05-30 08:05] LABS: Anion Gap 6 meq/L (5-15); Blood Urea Nitrogen 11 mg/dL (7-18); Carbon Dioxide 28.7 meq/L (21.0-32.0); Glucose,Random 79 mg/dL (74-106)
[2018-05-30 08:16] LABS: Glomerular Filtration Rate Greater Than 89 mL/min (>89)
[2018-05-30] MEDS: amLODIPine 5 MG Tablet PO SCH (08:23)
[2018-05-30] MEDS: Enoxaparin Inj 40 MG/0.4 ML Syringe SQ SCH (08:24)
[2018-05-30 09:32] LABS: Ovalocytes 1+; Platelet Estimate Normal (Normal); Platelet Morphology Normal (Normal)
--- NOTE | 2018-05-30 14:52 | P.PNIM ---
Subjective Interval history: Is in bed appears in not acute distress at this time. Says pain in his leg is better after the wound VAC was placed. No fever or chills overnight. No nausea or vomiting eating fairly well. Podiatry recommends rehab. Discussed with case management nurse might be problem with insurance will follow up also intraoperative cultures Physical Exam Vital signs: Vital Signs 05/29/18 16:00 05/29/18 20:00 05/30/18 00:00 Temperature 98.9 F 99 F 98.3 F Pulse Rate 70 71 58 L Respiratory Rate 21 20 20 Blood Pressure 155/76 H 131/62 159/73 H Pulse Oximetry 96 98 98 05/30/18 08:00 05/30/18 12:00 Temperature 98.2 F 98.0 F Pulse Rate 59 L 65 Respiratory Rate 17 17 Blood Pressure 148/78 H 144/82 H Pulse Oximetry 94 L 95 Intake & Output 05/29/18 05/30/18 05/30/18 18:59 06:59 18:59 Intake Total 2372.5 / 2372.5 1362.5 / 1362.5 1050 / 1050 Output Total 1600 / 1600 1350 / 1350 Balance 772.5 / 772.5 12.5 / 12.5 1050 / 1050 Weight 85 kg Intake: IV 1212.5 / 1212.5 1362.5 / 1362.5 1050 / 1050 NS Inj 1,000 ML @ 100 mls/hr IV 900 / 900 1000 / 1000 1000 / 1000 .CONT .Q10H [facility] Rx#:[id number] Vancomycin Inj 1,250 MG In NS 262.5 / 262.5 262.5 / 262.5 Inj 250 ML @ 250 mls/hr IV.SIG Q12H [facility] Rx#:[id number] Ancef 2 GM Premix Inj 2 gm In 50 / 50 100 / 100 50 / 50 50 ml @ 100 mls/hr IV.SIG Q8H [facility] Rx#:[id number] Oral 1160 / 1160 Output: Urine 1600 / 1600 1350 / 1350 Other: Mode Setting Left Ankle Continuous Continuous # Voids 1 Date of Last Bowel Movement 05/27/18 Narrative: GENERAL: 72 yo male, appears in NAD. CARDIOVASCULAR: Regular rate and rhythm without murmurs, gallops, or rubs. RESPIRATORY: Breath sounds equal bilaterally. No accessory muscle use. GASTROINTESTINAL: Abdomen soft, non-tender, nondistended. MUSCULOSKELETAL: No cyanosis, or edema. Left lower ext wound wrapped, wound vac in place. BACK: Nontender without obvious deformity. No CVA tenderness. Results Labs CBC & Chem 7: 05/30/18 06:47 05/30/18 06:47 Labs: Microbiology 05/28/18 07:45 Wound - Leg Gram Stain - Final 05/28/18 07:45 Wound - Leg Wound Culture - Preliminary Staphylococcus aureus gram negative rods Streptococcus species Assessment and Plan Plan Mr. Cui is a pleasant 72-year-old male with no significant past medical history who presents to the emergency department on 05/25/2018 due to left lower extremity infected wound. Patient is unable to provide specific history but reports existence of this on for at least 2 months. He denies any fever or chills. Denies any problem walking. Left ankle infected wound CRP is elevated. Culture is growing Proteus, Staph Aureus, Group B strep. -Will d/c Cefepime and start Cefazolin and continue Vancomycin until sensitivity for Staph comes back. -IF Staph is MSSA, we can d/c Vanc and continue monotherapy with Cefazolin and at the time of discharge Keflex PO. podiatry input greatly a -s/p Left leg wound debridement and irrigation with wound vac placement by Dr Avila 05.28.18 Hypertension -Amlodipine 5mg Qday. Tobacco abuse Patient counseled. Full code. Lovenox 40 mg SQ daily. Discussed with the patient, nurse. Discharge when improved and cleared by podiatry. Patient has a wound VAC Patient needs rehab at discharge per podiatry recommendations as patient with wound VAC needs more care Case management consulted and following Progress Note: Quality VTE Deep Vein Thrombosis/Pulmonary Embolism Present on Admission: No
[2018-05-31] MEDS: Vancomycin Inj 1,250 MG in Sodium Chlor 0.9% Inj 250 ML IV.SIG SCH ×2 (01:55→14:49)
[2018-05-31] MEDS: ceFAZolin 2 GM Premix Inj 2 GM/50 ML PIGGYBACK IV.SIG SCH ×3 (05:20→21:13)
[2018-05-31 05:38] LABS: Baso # (Auto) 0.1 th/mm3 (0.0-0.2); Eos # (Auto) 0.5 th/mm3 (0.0-0.4); Hematocrit 42.4 % (39.0-51.0); Hemoglobin 13.1 gm/dL (13.0-17.0); Lymph % (Auto) 14.8 % (9.0-44.0); Mean Corpuscular Volume 77.8 fL (80.0-100.0); Mean Platelet Volume 8.5 fL (7.0-11.0); Mono # (Auto) 0.7 th/mm3 (0.0-0.9); Neut # (Auto) 4.6 th/mm3 (1.8-7.7); Neut % (Auto) 67.2 % (16.0-70.0); Platelet Count 227 th/mm3 (150-450); Red Blood Count 5.45 mil/mm3 (4.50-5.90); Red Cell Distribution Width 19.1 % (11.6-17.2); White Blood Count 6.9 th/mm3 (4.0-11.0)
[2018-05-31 05:42] LABS: Chloride 105 meq/L (98-107); Potassium 3.7 meq/L (3.5-5.1); Sodium 141 meq/L (136-145)
[2018-05-31 05:44] LABS: Mean Corpuscular HGB Conc 30.9 % (32.0-36.0)
[2018-05-31 05:46] LABS: Calcium 8.5 mg/dL (8.5-10.1)
[2018-05-31 05:47] LABS: Anion Gap 7 meq/L (5-15); Blood Urea Nitrogen 11 mg/dL (7-18); Carbon Dioxide 29.1 meq/L (21.0-32.0); Glucose,Random 88 mg/dL (74-106)
[2018-05-31 05:50] LABS: Glomerular Filtration Rate Greater Than 89 mL/min (>89)
[2018-05-31 05:56] LABS: Ovalocytes 1+; Platelet Estimate Normal (Normal); Platelet Morphology Normal (Normal)
[2018-05-31] MEDS: Sod Chloride 0.9% Inj 1,000 ML IV.CONT SCH ×2 (09:22→18:43)
[2018-05-31] MEDS: Enoxaparin Inj 40 MG/0.4 ML Syringe SQ SCH (09:23)
[2018-05-31] MEDS: amLODIPine 5 MG Tablet PO SCH (09:23)
--- NOTE | 2018-05-31 10:34 | P.PNIM ---
Subjective Interval history: Is in bed says he feels tired today. Pain in his leg is fairly controlled by medications. Complains of constipation. No nausea or vomiting. No fever or chills overnight. Physical Exam Vital signs: Vital Signs 05/30/18 12:00 05/30/18 16:00 05/30/18 20:00 Temperature 98.0 F 98.8 F 97.9 F Pulse Rate 65 62 65 Respiratory Rate 17 16 20 Blood Pressure 144/82 H 137/70 140/67 Pulse Oximetry 95 97 95 05/31/18 00:00 05/31/18 08:00 Temperature 98.7 F 97.7 F Pulse Rate 63 56 L Respiratory Rate 20 12 Blood Pressure 139/65 159/73 H Pulse Oximetry 96 92 L Intake & Output 05/30/18 05/31/18 05/31/18 18:59 06:59 18:59 Intake Total 2392.5 / 2392.5 1312 / 1312 1240 / 1240 Output Total 1300 / 1300 1400 / 1400 0 / 0 Balance 1092.5 / 1092.5 -88 / -88 1240 / 1240 Weight 85.6 kg Intake: IV 1312.5 / 1312.5 1312 / 1312 1000 / 1000 NS Inj 1,000 ML @ 100 mls/hr IV 1000 / 1000 950 / 950 1000 / 1000 .CONT .Q10H [facility] Rx#:[id number] Vancomycin Inj 1,250 MG In NS 262.5 / 262.5 262 / 262 Inj 250 ML @ 250 mls/hr IV.SIG Q12H [facility] Rx#:[id number] Ancef 2 GM Premix Inj 2 gm In 50 / 50 100 / 100 50 ml @ 100 mls/hr IV.SIG Q8H [facility] Rx#:[id number] Oral 1080 / 1080 240 / 240 Output: Urine 1300 / 1300 1400 / 1400 0 / 0 Other: Mode Setting Left Ankle Continuous Continuous Continuous Date of Last Bowel Movement 05/27/18 # Bowel Movements 0 Narrative: GENERAL: 72 yo male, appears in NAD. CARDIOVASCULAR: Regular rate and rhythm without murmurs, gallops, or rubs. RESPIRATORY: Breath sounds equal bilaterally. No accessory muscle use. GASTROINTESTINAL: Abdomen soft, non-tender, nondistended. MUSCULOSKELETAL: No cyanosis, or edema. Left lower ext wound wrapped, wound vac in place. BACK: Nontender without obvious deformity. No CVA tenderness. Results Labs CBC & Chem 7: 05/31/18 04:55 05/31/18 04:55 Labs: Microbiology 05/28/18 07:45 Wound - Leg Gram Stain - Final 05/28/18 07:45 Wound - Leg Wound Culture - Final Staphylococcus aureus Proteus mirabilis Group B beta Strep Assessment and Plan Plan Mr. Cui is a pleasant 72-year-old male with no significant past medical history who presents to the emergency department on 05/25/2018 due to left lower extremity infected wound. Patient is unable to provide specific history but reports existence of this on for at least 2 months. He denies any fever or chills. Denies any problem walking. Left ankle infected wound CRP is elevated. Culture is growing Proteus, Staph Aureus, Group B strep. -Will d/c Cefepime and start Cefazolin and continue Vancomycin until sensitivity for Staph comes back. -IF Staph is MSSA, we can d/c Vanc and continue monotherapy with Cefazolin and at the time of discharge Keflex PO. podiatry input greatly a -s/p Left leg wound debridement and irrigation with wound vac placement by Dr Avila 05.28.18 Hypertension -Amlodipine 5mg Qday. Tobacco abuse Patient counseled. Constipation. Bowel regimen Full code. Lovenox 40 mg SQ daily. Discussed with the patient, nurse. Discharge when improved and cleared by podiatry. Patient has a wound VAC Patient needs rehab at discharge per podiatry recommendations as patient with wound VAC needs more care Case management consulted and following Progress Note: Quality VTE Deep Vein Thrombosis/Pulmonary Embolism Present on Admission: No
--- NOTE | 2018-05-31 13:32 | P.DS ---
DS: Providers Date of admission: 05/28/18 15:50 Primary care physician: UNKNOWN Consults: 05/26/18 08:23 Consult to Podiatry Routine Consulting Provider: Khadijah Newby Reason for Consultation: Left ankle deep infected ulcer. Will get an JIM study as well. Thank you. Notified:: Office Spoke with:: shine Date Notified:: 05/26/18 Time Notified:: 08:59 Ordering Provider: DANNY 05/31/18 10:54 HUB Only Consult Order Routine Consulting Provider: [facility],[place] Brief History from admission: Mr. Cui is a pleasant 72-year-old male with no significant past medical history who presents to the emergency department on 05/25/2018 due to a wound to his left lower extremity. Patient is not able to give very detailed information. However, he reports existence of this on for at least 2 months. He does not have any fever or chills. Denies any significant pain that causes any problem with his ambulation. He does note drainage from the wound. On arrival blood pressure, heart rate, respiratory rate, temperature unremarkable. Lab work shows no leukocytosis. C-reactive protein was 2.39 (elevated). Tibia/fibula x-ray shows large and deep soft tissue laceration and/or ulceration. No perceptible acute bony abnormality. Past medical history: No significant medical history. Past surgical history: Tonsil/adenoidectomy, left cataract surgery. Family history: Father had cancer and mother had congestive heart failure. Social history: Patient smokes about half a pack a day. Denies using alcohol or illicit drugs. DS: Summary Mr. Cui is a pleasant 72-year-old male with no significant past medical history who presents to the emergency department on 05/25/2018 due to left lower extremity infected wound. Patient is unable to provide specific history but reports existence of this on for at least 2 months. He denies any fever or chills. Denies any problem walking. Left ankle infected wound CRP is elevated. Culture is growing Proteus, Staph Aureus, Group B strep. -Will d/c Cefepime and start Cefazolin and continue Vancomycin until sensitivity for Staph comes back. -IF Staph is MSSA, we can d/c Vanc and continue monotherapy with Cefazolin and at the time of discharge Keflex PO. podiatry input greatly a -s/p Left leg wound debridement and irrigation with wound vac placement by Dr Avila 05.28.18 Wound VAC is removed by podiatry on 06/01/18 Hypertension -Amlodipine 5mg Qday. Tobacco abuse Patient counseled. Constipation. Bowel regimen Wound VAC was removed by by podiatry and patient is clear for discharge. Patient improved discharge to long-term facility in fairly stable stable condition. To follow-up with PCP and consultants as outpatient. Time Spent with Patient Total time spent providing and/or coordinating discharge services: >30 min Quality: VTE Deep Vein Thrombosis/Pulmonary Embolism Present on Admission: No Exam Narrative Exam Narrative: GENERAL: 72 yo male, appears in NAD. CARDIOVASCULAR: Regular rate and rhythm without murmurs, gallops, or rubs. RESPIRATORY: Breath sounds equal bilaterally. No accessory muscle use. GASTROINTESTINAL: Abdomen soft, non-tender, nondistended. MUSCULOSKELETAL: No cyanosis, or edema. Left lower ext wound wrapped, wound vac removed, dressing cdi. Results Labs on day of discharge: Labs from last 24 hours 05/31/18 05/31/18 04:55 04:55 CBC w Diff Slide review pending WBC 6.9 RBC 5.45 Hgb 13.1 Hct 42.4 MCV 77.8 L MCH 24.0 L MCHC 30.9 L RDW 19.1 H Plt Count 227 MPV 8.5 Neut % (Auto) 67.2 Lymph % (Auto) 14.8 [place] % (Auto) 10.0 H Eos % (Auto) 7.0 H Baso % (Auto) 1.0 Neut # (Auto) 4.6 Lymph # (Auto) 1.0 [place] # (Auto) 0.7 Eos # (Auto) 0.5 H Baso # (Auto) 0.1 WBC Differential . Diff Scan Auto diff confirmed Differential Comment . Platelet Estimate Normal Platelet Morphology Normal Ovalocytes 1+ H Sodium 141 Potassium 3.7 Chloride 105 Carbon Dioxide 29.1 Anion Gap 7 BUN 11 Creatinine 0.61 Estimated GFR Greater than 89 Random Glucose 88 Calcium 8.5 Impressions ITS Impressions Tibia/Fibula X-Ray 05/25/18 19:28 CONCLUSION: Large and deep soft tissue laceration and/or ulceration anterolaterally of the distal leg without an associated perceptible acute bony abnormality. Ankle MRI 05/26/18 00:00 CONCLUSION: 1. Subcutaneous soft tissue defect without focal abscess or signs of osteomyelitis. Extremity Arterial Study 05/26/18 00:00 CONCLUSION: 1. No evidence for hemodynamically significant stenosis based on this technique. Discharge Plan Discharge Disposition Patient Disposition: 03 Discharge to SNF Discharge Condition Condition: Stable Discharge Order Discharge Orders: Discharge Order (Routine); Ordered 05/31/18 Ordered By: Angeles Garcias Discharge Details Anticipated Discharge Date: 05/31/18 Discharge Comment: DC when arrangements are done Physicians Team ED Provider: Elvie Islas Primary Care Provider: UNKNOWN, Attending Provider: Angeles Garcias Other Providers: Khadijah Newby ; [facility] Rxs /Orders / Referrals /Forms Prescriptions: New amlodipine [Norvasc] 5 mg Tablet 5 mg PO DAILY Qty: 60 RF: 0 cephalexin [Keflex] 500 mg capsule 1 g PO Q12H 7 Days Qty: 28 RF: 0 amlodipine 5 mg tablet 5 mg PO DAILY Qty: 30 RF: 0 No Action No Known Home Medications RF: 0 Referrals: Khadijah Newby DPM [Physician] - See Instructions ( Please call the physician's office to book the appointment to be seen within [3-5 days]. F/up with Dr Avila podiatrrenard ) UNKNOWN, [Primary Care Provider] - See Instructions ( Please call the physician's office to book the appointment to be seen within []2-3 days with PCP . ) Status ED Status: Left Department
[2018-06-01] MEDS: Vancomycin Inj 1,250 MG in Sodium Chlor 0.9% Inj 250 ML IV.SIG SCH ×2 (02:37→14:00)
[2018-06-01] MEDS: ceFAZolin 2 GM Premix Inj 2 GM/50 ML PIGGYBACK IV.SIG SCH ×2 (06:07→12:00)
[2018-06-01] MEDS: Sod Chloride 0.9% Inj 1,000 ML IV.CONT SCH ×2 (06:07→15:26)
[2018-06-01 07:50] LABS: Baso # (Auto) 0.1 th/mm3 (0.0-0.2); Baso % (Auto) 0.9 % (0.0-2.0); Eos # (Auto) 0.5 th/mm3 (0.0-0.4); Eos % (Auto) 6.8 % (0.0-4.0); Hematocrit 38.3 % (39.0-51.0); Hemoglobin 12.3 gm/dL (13.0-17.0); Lymph # (Auto) 1.5 th/mm3 (1.0-4.8); Lymph % (Auto) 20.7 % (9.0-44.0); Mean Corpuscular Hemoglobin 24.5 pg (27.0-34.0); Mean Corpuscular Volume 76.7 fL (80.0-100.0); Mean Platelet Volume 8.8 fL (7.0-11.0); Mono # (Auto) 0.7 th/mm3 (0.0-0.9); Mono % (Auto) 9.7 % (0.0-8.0); Neut # (Auto) 4.3 th/mm3 (1.8-7.7); Neut % (Auto) 61.9 % (16.0-70.0); Platelet Count 244 th/mm3 (150-450); Red Blood Count 4.99 mil/mm3 (4.50-5.90); Red Cell Distribution Width 19.1 % (11.6-17.2); White Blood Count 7.1 th/mm3 (4.0-11.0)
[2018-06-01 07:52] LABS: Chloride 105 meq/L (98-107); Potassium 3.5 meq/L (3.5-5.1); Sodium 139 meq/L (136-145)
[2018-06-01 08:09] LABS: Calcium 8.3 mg/dL (8.5-10.1)
[2018-06-01 08:10] LABS: Anion Gap 6 meq/L (5-15); Blood Urea Nitrogen 10 mg/dL (7-18); Carbon Dioxide 28.4 meq/L (21.0-32.0); Glucose,Random 75 mg/dL (74-106)
[2018-06-01 08:13] LABS: Glomerular Filtration Rate Greater Than 89 mL/min (>89)
[2018-06-01] MEDS: amLODIPine 5 MG Tablet PO SCH (08:36)
[2018-06-01] MEDS: Enoxaparin Inj 40 MG/0.4 ML Syringe SQ SCH (08:36)
--- NOTE | 2018-06-01 11:34 | P.PNPOD ---
Physical Exam Vital signs: Vital Signs 05/31/18 12:00 05/31/18 16:00 05/31/18 20:00 Temperature 96.5 F L 97.1 F L 98.0 F Pulse Rate 64 62 65 Respiratory Rate 16 12 18 Blood Pressure 148/81 H 140/71 134/70 Pulse Oximetry 96 95 96 06/01/18 00:00 06/01/18 08:00 Temperature 97.1 F L 97.1 F L Pulse Rate 63 58 L Respiratory Rate 18 21 Blood Pressure 154/79 H 153/79 H Pulse Oximetry 96 95 Intake & Output 05/31/18 06/01/18 06/01/18 18:59 06:59 18:59 Intake Total 3032.5 / 3032.5 1382.5 / 1382.5 480 / 480 Output Total 800 / 800 1200 / 1200 1000 / 1000 Balance 2232.5 / 2232.5 182.5 / 182.5 -520 / -520 Weight 88.1 kg Intake: IV 2312.5 / 2312.5 1262.5 / 1262.5 NS Inj 1,000 ML @ 100 mls/hr IV 2000 / 2000 900 / 900 .CONT .Q10H [facility] Rx#:[id number] Vancomycin Inj 1,250 MG In NS 262.5 / 262.5 262.5 / 262.5 Inj 250 ML @ 250 mls/hr IV.SIG Q12H [facility] Rx#:[id number] Ancef 2 GM Premix Inj 2 gm In 50 / 50 100 / 100 50 ml @ 100 mls/hr IV.SIG Q8H [facility] Rx#:[id number] Oral 720 / 720 120 / 120 480 / 480 Output: Urine 800 / 800 1200 / 1200 1000 / 1000 Other: Mode Setting Left Ankle Continuous Continuous Continuous Date of Last Bowel Movement 05/27/18 05/27/18 Narrative: Left lateral anterior garner area with wound 8cm x 5cm x 0.5cm depth, healthy granular base. Minimal serous drainage. Vac removed today. No erythema or edema noted. No purulence. Medications and Allergies Active Medications: Active Medications Acetaminophen (Tylenol) 650 mg PO Q4H PRN PRN Reason: Temp > 100.4 Amlodipine Besylate (Norvasc) 5 mg PO DAILY [facility] Last Admin: 06/01/18 08:36 Dose: 5 mg Enoxaparin Sodium (Lovenox Inj) 40 mg SQ DAILY [facility] Last Admin: 06/01/18 08:36 Dose: 40 mg Sodium Chloride (Ns Inj) 1,000 mls @ 100 mls/hr IV.CONT .Q10H [facility] Last Admin: 06/01/18 06:07 Dose: 100 mls/hr Sodium Chloride (Ns Inj) 500 mls @ 30 mls/hr IV.SIG .Q10H [facility] Last Admin: 05/28/18 09:20 Dose: Not Given Vancomycin HCl 1,250 mg/ (Sodium Chloride) 262.5 mls @ 250 mls/hr IV.SIG Q12H [facility] Last Infusion: 06/01/18 03:40 Dose: Infused Cefazolin Sodium/Dextrose (Ancef 2 Gm Premix Inj) 2 gm in 50 mls @ 100 mls/hr IV.SIG Q8H [facility] Last Infusion: 06/01/18 06:40 Dose: Infused Ondansetron HCl (Zofran Inj) 4 mg IV.PUSH Q6H PRN PRN Reason: NAUSEA OR VOMITING Pharmacy Profile Note (Vancomycin Consult Pharmacy) 1 each OTHER UNSCH PRN PRN Reason: Pharmacy to dose Sodium Chloride (Ns Flush) 2 ml IV.FLUSH BID [facility] Last Admin: 06/01/18 08:37 Dose: 2 ml Sodium Chloride (Ns Flush) 2 ml IV.FLUSH PRN PRN PRN Reason: FLUSH AFTER USING IV ACCESS Last Admin: 05/31/18 05:23 Dose: 2 ml Allergies Allergy/AdvReac Type Severity Reaction Status Date / Time chlorpromazine Allergy Severe Confusion Verified 05/25/18 21:01 Home Medications Medication Instructions Recorded Confirmed Type No Known Home Medications 05/25/18 05/25/18 History Results - Labs CBC & Chem 7: 06/01/18 05:30 06/01/18 05:30 Laboratory Results - last 24 hr 06/01/18 06/01/18 05:30 05:30 CBC w Diff Slide review pending WBC 7.1 RBC 4.99 Hgb 12.3 L Hct 38.3 L MCV 76.7 L MCH 24.5 L MCHC 32.0 RDW 19.1 H Plt Count 244 MPV 8.8 Neut % (Auto) 61.9 Lymph % (Auto) 20.7 [place] % (Auto) 9.7 H Eos % (Auto) 6.8 H Baso % (Auto) 0.9 Neut # (Auto) 4.3 Lymph # (Auto) 1.5 [place] # (Auto) 0.7 Eos # (Auto) 0.5 H Baso # (Auto) 0.1 WBC Differential . Diff Scan Auto diff confirmed Differential Comment . Sodium 139 Potassium 3.5 Chloride 105 Carbon Dioxide 28.4 Anion Gap 6 BUN 10 Creatinine 0.60 Estimated GFR Greater than 89 Random Glucose 75 Calcium 8.3 L Microbiology 05/28/18 07:45 Wound - Leg Gram Stain - Final 05/28/18 07:45 Wound - Leg Wound Culture - Final Staphylococcus aureus Proteus mirabilis Group B beta Strep Assessment and Plan - Assessment (1) Infected open wound Code(s): T14.8XXA - Other injury of unspecified body region, initial encounter; L08.9 - Local infection of the skin and subcutaneous tissue, unspecified Status: Acute Plan: Wound vac dressing removed. Patient needs to have weekly unna boots ordered with home health care. Ordered compression dressing with nonadherent bandage to wound to be applied this morning per nursing. Follow up with Dr Avila in 2 weeks
== END 2018-06-01 15:37 | DRG 572 ==
LOC: PHED 18:51 → PHEDA 18:51 → PH3 23:07
PROVIDERS: ADMIT Hospitalist; ATTEND Hospitalist
CPT/HCPCS: 73590; 73723; 80048; 80053; 80202; 82565; 85025; 85651; 85652; 86140; 86403; 87015; 87070; 87077; 87102; 87116; 87147; 87186; 87205; 87206; 90765; 93005; 93922; 94150; 96365; 96366; 99285; A9585; G0378; J0690; J0692; J1650; J2543; J2704; J3370; J7030; J7040; J7050; J7120